=== PATIENT | female | born 1935 | race Caucasian/White ===

== ENCOUNTER 2019-07-03 15:00 | Outpatient (CLI) | payer MEDICARE ==
[2019-07-03 18:46] LABS: BASOPHILS # (AUTO) 0.1 10^3/uL (0.0-0.1); BASOPHILS % (AUTO) 0.9 %; EOSINOPHILS # (AUTO) 0.2 10^3/uL (0.0-0.7); HGB - HEMOGLOBIN 10.1 g/dL (12.0-16.0); LYMPHOCYTES # (AUTO) 2.9 10^3/uL (1.5-3.5); LYMPHOCYTES % (AUTO) 39.1 %; MEAN CORPUSCULAR HEMOGLOBIN 32.7 pg (27.0-31.0); MEAN CORPUSCULAR HGB CONC 30.9 g/dL (32.0-36.0); MEAN CORPUSCULAR VOLUME 105.8 fL (81.0-99.0); MEAN PLATELET VOLUME 9.5 fL (7.9-10.8); MONOCYTES # (AUTO) 0.7 10^3/uL (0.0-1.0); MONOCYTES % (AUTO) 8.8 %; NEUTROPHILS # (AUTO) 3.7 10^3/uL (1.5-6.6); NEUTROPHILS % (AUTO) 48.7 %; PLT - PLATELET COUNT 377 10^3/uL (130-450); RED BLOOD COUNT 3.09 10^6/uL (4.20-5.40); RED CELL DISTRIBUTION WIDTH 13.6 % (12.0-15.0); WHITE BLOOD COUNT 7.5 x10^3/uL (4.8-10.8)
[2019-07-03 18:57] LABS: BILIRUBIN,TOTAL 0.6 mg/dL (0.2-1.0); CALCIUM 9.4 mg/dL (8.5-10.3); CREATININE 1.1 mg/dL (0.4-1.0)
== END 2019-07-03 23:59 | disposition home or self-care (01) ==
LOC: LAB.WCP 15:00
PROVIDERS: ATTEND Physician Assistant
DX: G91.2 (Idiopathic) normal pressure hydrocephalus (principal)
CPT/HCPCS: 36415; 80053; 85025

== ENCOUNTER 2019-07-23 12:26 | Outpatient (CLI) | payer MEDICARE ==
[2019-07-23] MEDS ORDERED: REGADENOSON 0.4 MG/5 ML SYRINGE IVP ONE (14:42)
[2019-07-23] MEDS ORDERED: AMINOPHYLLINE 250 MG/10 ML VIAL ONE (14:42)
[2019-07-23] MEDS: REGADENOSON 0.4 MG/5 ML SYRINGE IVP ONE (14:50)
--- NOTE | 2019-07-23 15:20 | CARDIAC PROCEDURE NOTE ---
DATE OF SERVICE: 07/23/2019 Physician: Karen King MD, [facility] INDICATION: Chest pain. CARDIAC RISK FACTORS: Advanced age. DESCRIPTION OF PROCEDURE: After signing informed consent, the patient underwent a Lexiscan pharmaceutical stress test with nuclear myocardial perfusion imaging. RESTING HEART RATE: 71. PEAK HEART RATE: 89. RESTING BLOOD PRESSURE: 131/74. PEAK BLOOD PRESSURE: 138/71. Lexiscan was infused per protocol. Patient developed a headache, she had no chest pain or shortness of breath. The patient was given Aminophylline 25 mg IV, for reversal of her headache. EKG AT REST: Normal sinus rhythm, rare PVC, otherwise within normal limits. EKG AT PEAK: No new ST segment or T-wave abnormalities. SUMMARY 1. Normal resting EKG except for PVC. 2. No ischemic changes by EKG criteria during this pharmaceutical stress test. 3. Nuclear images reported separately. cc: Victoria Herring PA-C TD: 07/23/2019 15:12 MTDD
--- NOTE | 2019-07-24 09:22 | CT Report ---
Reason: VENTRICULOPERITONEAL SHUNT,NORM PRES HYDROCEPHALUS Procedure Date: 07/23/2019 Accession Number: [id number] / [id number] Procedure: CT - HEAD WO CPT Code: Final Report FULL RESULT: EXAM: CT HEAD EXAM DATE: 07/23/2019 12:55 PM. CLINICAL HISTORY: Ventriculoperitoneal shunt, normal pressure hydrocephalus. COMPARISON: None. TECHNIQUE: Multiaxial CT images were obtained from the foramen magnum to the vertex. Reformats: Sagittal and coronal. IV contrast: None. In accordance with CT protocol optimization, one or more of the following dose reduction techniques were utilized for this exam: automated exposure control, adjustment of mA and/or KV based on patient size, or use of iterative reconstructive technique. FINDINGS: Parenchyma: No intraparenchymal hemorrhage. No evidence of mass, midline shift. Ngo-white differentiation is distinct. Extra-axial Spaces: Normal for age. No subdural or epidural collections identified. Ventricles: A right posterior approach ventriculoperitoneal shunt catheter is visualized with its tip near the anterior portion of the septum. The lateral ventricles are symmetrically enlarged with prominence of the third and fourth ventricles as well. Sinuses and Orbits: Imaged paranasal sinuses, orbits, and mastoids show no significant abnormality. Bones: No evidence of fracture or calvarial defect. Other: None. IMPRESSION: Symmetric ventriculomegaly with expected positioning of ventriculoperitoneal shunt catheter. RADIA
--- NOTE | 2019-07-24 11:20 | Nuclear Medicine Report ---
Reason: CHEST PAIN Procedure Date: 07/23/2019 Accession Number: [id number] / [id number] Procedure: NM - Myocardial Perfusion STR/RST CPT Code: Final Report FULL RESULT: EXAM: SINGLE-ISOTOPE PHARMACOLOGICAL STRESS TEST WITH REGADENOSON. SINGLE-ISOTOPE AND ONE-DAY REST/STRESS MYOCARDIAL PERFUSION SCANS WITH TOMOGRAPHIC IMAGING, QUANTITATIVE ANALYSIS, WALL MOTION ANALYSIS AND CALCULATION OF EJECTION FRACTION. EXAM DATE: 07/23/2019 01:57 PM. CLINICAL HISTORY: CHEST PAIN. COMPARISON: None. TECHNIQUE: After the intravenous administration of 10.8 mCi of Tc-99m sestamibi, a rest myocardial perfusion scan was done with tomography. Motion correction was applied when appropriate. After an appropriate delay, pharmacological stress was performed with the infusion of 0.4 mg regadenoson per protocol. According to protocol, 44.3 mCi of Tc-99m sestamibi was injected for stress myocardial perfusion scan. Motion correction was applied when appropriate. Gated tomographic images were obtained for wall motion analysis and computation of left ventricular ejection fraction. FINDINGS: Perfusion images: Left ventricular chamber size appears normal at rest and unchanged at stress. No convincing fixed perfusion deficits. Small size region of mildly reduced uptake at the apical third anteroseptal/anterior wall appears improved on rest images. SSS 4, SRS 1, SDS 3. Gated images: No convincing focal wall motion abnormality. Calculated left ventricular EDV 61 mL, ESV 16 mL. The left ventricular ejection fraction is estimated at 74% (normal > 50%). IMPRESSION: 1. Small size, mild severity reversible apical third anteroseptal/anterior, suggesting mild stress-induced ischemia. 2. No convincing fixed perfusion deficits. 3. Left ventricular ejection fraction of 74% (normal > 50%). Please correlate findings with stress ECG tracings and procedure notes. RADIA
== END 2019-07-23 12:27 | disposition home or self-care (01) ==
LOC: DI 12:26
PROVIDERS: ATTEND Physician Assistant
DX: R07.9 Chest pain, unspecified (principal); G91.2 (Idiopathic) normal pressure hydrocephalus; Z98.2 Presence of cerebrospinal fluid drainage device; G93.89 Other specified disorders of brain
CPT/HCPCS: 70450; 78452; 93017; A9500; J2785

== ENCOUNTER 2020-05-14 10:03 | Outpatient (CLI) | payer BC, MEDICARE ==
--- NOTE | 2020-05-14 11:29 | XRAY Report ---
PROCEDURE: Shoulder 3 View LT INDICATIONS: SHOULDER JOINT PAIN,LEFT TECHNIQUE: 3 views of the shoulder were acquired. COMPARISON: None. FINDINGS: Bones: No fractures or dislocations. No suspicious bony lesions. Visualized ribs appear intact. M oderate to severe acromioclavicular degenerative narrowing. In addition, the humeral head is high rid ing. Soft tissues: No suspicious soft tissue calcifications. IMPRESSION: 1. Moderate to severe acromioclavicular degenerative narrowing. 2. High riding humeral head which can be seen with rotator cuff pathology. Reviewed by: Ema Resendiz MD on 05/14/2020 11:28 AM PDT Approved by: Ema Resendiz MD on 05/14/2020 11:28 AM PDT Station ID: [id number]
== END 2020-05-14 10:04 | disposition home or self-care (01) ==
LOC: DI 10:03
PROVIDERS: ATTEND Family Medicine
DX: M19.012 Primary osteoarthritis, left shoulder (principal); R93.6 Abnormal findings on diagnostic imaging of limbs

== ENCOUNTER 2020-06-07 11:14 | Outpatient (CLI) | payer MEDICARE, MEDICAID | END 2020-06-07 11:15 | disposition critical access hospital (66) | LOC: EMS 11:14 | PROVIDERS: ATTEND Surgery | DX: R53.81 Other malaise (principal); R11.0 Nausea | CPT/HCPCS: A0425; A0427 ==

== ENCOUNTER 2020-06-07 11:31 | Emergency (ER) | payer MEDICARE, MEDICAID ==
[2020-06-07] MEDS ORDERED: ONDANSETRON 4 MG/2 ML VIAL IVP STA (11:57)
--- NOTE | 2020-06-07 12:16 | ED Physician Documentation ---
History of Present Illness - Stated complaint Stated Complaint: AMS - Chief complaint Chief Complaint: General - History obtained from History obtained from: Patient, Family, EMS - Additonal information Additional information: Patient is brought to the emergency department by EMS after being found to have an episode of altered mental status this morning while eating breakfast. Daughter states that the patient had several teeth extracted 3 days ago and was placed on amoxicillin and oxycodone after that. She has been wearing new dentures for the last few days and has been complaining that her mouth hurts. Daughter states there has not been any swelling or drainage from the patient's mouth. They have been giving the Percocet every 6 hours as directed, and the patient has been on her scheduled amoxicillin as directed, as well. The patient has not complained of any worse pain than usual anywhere else. Daughter states the episode this morning was relayed to her by her sister who lives with the patient. The patient apparently suddenly developed a blank stare and was unarousable. This lasted for less than 1 minute, and then the patient began to come around. Medics state the patient has been alert and oriented for them, and daughter states that patient now is back at baseline. No focal neurologic deficits were noted at that time. The patient denies any chest or abdominal pain. No shortness of breath. The patient only symptom has been nausea and vomiting since the ambulance ride. She does note that she keeps having the urge to urinate, but never seems to have any urine come out when she tries to go. She does have a history of a SALES SERVICE SUPERVISOR shunt which was most recently evaluated about 6 months ago, and they were told by the neurosurgeon that the shunt looks good. No other complaints at this time. Review of Systems Ten Systems: 10 systems reviewed and negative Constitutional: reports: Reviewed and negative Eyes: reports: Reviewed and negative Ears: reports: Reviewed and negative Nose: reports: Reviewed and negative Throat: reports: Reviewed and negative Cardiac: reports: Reviewed and negative Respiratory: reports: Reviewed and negative GI: reports: Nausea, Vomiting : reports: Reviewed and negative Skin: reports: Reviewed and negative Musculoskeletal: reports: Reviewed and negative Neurologic: reports: Altered mental status, Unresponsive Psychiatric: reports: Reviewed and negative Endocrine: reports: Reviewed and negative Immunocompromised: reports: Reviewed and negative PD PAST MEDICAL HISTORY - Present Medications Home Medications: Ambulatory Orders Medication Instructions Recorded Confirmed Ondansetron Odt [Zofran] 4 mg TL Q6H PRN #10 tablet 06/07/20 - Allergies Allergies/Adverse Reactions: Allergies Allergy/AdvReac Type Severity Reaction Status Date / Time No Known Drug Allergies Allergy Verified 06/07/20 11:39 PD ED PE NORMAL - Vitals Vital signs reviewed: Yes - General General: No acute distress, Well developed/nourished, Other (Patient is alert and answers questions appropriately.) - HEENT HEENT: Atraumatic, PERRL, EOMI, Moist mucous membranes - Neck Neck: Supple, no meningeal sign - Cardiac Cardiac: RRR, No murmur - Respiratory Respiratory: No respiratory distress, Clear bilaterally - Abdomen Abdomen: Soft, Non tender, Non distended - Derm Derm: Normal color, Warm and dry, No rash - Extremities Extremities: No deformity - Neuro Neuro: Alert and oriented X 3 - Psych Psych: Normal mood, Normal affect Results - Vitals Vitals: Vital Signs - 24 hr 06/07/20 06/07/20 06/07/20 11:35 13:08 14:40 Temperature 36.1 C L 36.2 C L Heart Rate 58 L 79 95 Respiratory 20 15 18 Rate Blood Pressure 136/64 H 140/61 H 147/77 H O2 Saturation 96 97 100 Oxygen O2 Source Room air - Labs Labs: Laboratory Tests 06/07/20 06/07/20 06/07/20 11:50 11:50 11:50 WBC 14.9 H RBC 3.03 L Hgb 10.0 L Hct 31.3 L MCV 103.3 H MCH 33.0 H MCHC 31.9 L RDW 14.1 Plt Count 426 MPV 8.9 Neut # (Auto) 8.9 H Lymph # (Auto) 4.4 H Rose[place] # (Auto) 1.2 H Eos # (Auto) 0.3 Baso # (Auto) 0.1 Absolute Nucleated RBC 0.00 Nucleated RBC % 0.0 Sodium 136 Potassium 4.1 Chloride 99 L Carbon Dioxide 23 Anion Gap 14.0 H BUN 21 H Creatinine 1.3 H Estimated GFR (MDRD) 39 L Glucose 127 H Lactic Acid 1.3 Calcium 9.6 Total Bilirubin 0.7 AST 23 ALT 15 Alkaline Phosphatase 47 Total Protein 7.9 Albumin 4.0 Globulin 3.9 Albumin/Globulin Ratio 1.0 Lipase 27 Urine Color Urine Clarity Urine pH Ur Specific [place] Urine Protein Urine Glucose (UA) Urine Ketones Urine Occult Blood Urine Nitrite Urine Bilirubin Urine Urobilinogen Ur Leukocyte Esterase Urine RBC Urine WBC Ur Squamous Epith Cells Urine Bacteria Urine Casts Ur Microscopic Review Urine Culture Comments 06/07/20 13:28 WBC RBC Hgb Hct MCV MCH MCHC RDW Plt Count MPV Neut # (Auto) Lymph # (Auto) [place] # (Auto) Eos # (Auto) Baso # (Auto) Absolute Nucleated RBC Nucleated RBC % Sodium Potassium Chloride Carbon Dioxide Anion Gap BUN Creatinine Estimated GFR (MDRD) Glucose Lactic Acid Calcium Total Bilirubin AST ALT Alkaline Phosphatase Total Protein Albumin Globulin Albumin/Globulin Ratio Lipase Urine Color YELLOW Urine Clarity HAZY Urine pH 5.5 Ur Specific [place] 1.020 Urine Protein NEGATIVE Urine Glucose (UA) NEGATIVE Urine Ketones NEGATIVE Urine Occult Blood NEGATIVE Urine Nitrite NEGATIVE Urine Bilirubin NEGATIVE Urine Urobilinogen 0.2 (NORMAL) Ur Leukocyte Esterase NEGATIVE Urine RBC 0-5 Urine WBC 4-5 Ur Squamous Epith Cells MANY Squamous H Urine Bacteria Moderate H Urine Casts 6-10 Cellular Casts Ur Microscopic Review INDICATED Urine Culture Comments NOT INDICATED - Rads (name of study) CT head Radiology: Final report received, EMP read indepedently, See rad report (No acute intracranial findings; chronic microvascular ischemic change; SALES SERVICE SUPERVISOR shunt redemonstrated.) PD MEDICAL DECISION MAKING - ED course Complexity details: reviewed results, re-evaluated patient, considered differential, d/w patient, d/w family ED course: The patient was well-appearing in the emergency department, other than the nausea and vomiting, and seem to have returned to her mental baseline. She was worked up with labs, urinalysis, and head CT.The patient's entire work-up was negative. After receiving IV fluids and a total of 8 mg of Zofran between EMS and's, the patient was found to be resting comfortably in bed with no further complaints. I discussed with the patient's daughter that is most likely the buildup of oxycodone that has caused the patient's symptoms, though she may have a viral illness, as well. We discussed home management and symptoms, as well as the usual indications for return. Departure - Departure Disposition: 01 Home, Self Care Clinical Impression: Altered mental status Qualifiers: Altered mental status type: transient alteration of awareness Qualified Code(s): R40.4 - Transient alteration of awareness Vomiting Qualifiers: Vomiting type: bilious vomiting Nausea presence: with nausea Qualified Code(s): R11.14 - Bilious vomiting Condition: Stable Instructions: ED Altered Loc, ED Nausea Vomiting Prescriptions: Ondansetron Odt [Zofran] 4 mg TL Q6H PRN #10 tablet PRN Reason: Nausea / Vomiting Comments: The labs, CT scan, and urinalysis all look good. As we discussed, some of the symptoms may be due to buildup of the effects of the oxycodone in your system. You can try taking smaller doses, say 1/2 pill every 3-4 hours and see if this improves the symptoms. Please follow-up with your primary care physician within the week if you are not feeling better. You may take the nausea medication as needed. Discharge Date/Time: 06/07/20 14:49
[2020-06-07 12:19] LABS: BILIRUBIN,TOTAL 0.7 mg/dL (0.2-1.0); CALCIUM 9.6 mg/dL (8.5-10.3); CREATININE 1.3 mg/dL (0.4-1.0); TOTAL PROTEIN 7.9 g/dL (6.7-8.2)
[2020-06-07 12:20] LABS: BASOPHILS # (AUTO) 0.1 10^3/uL (0.0-0.1); BASOPHILS % (AUTO) 0.5 %; EOSINOPHILS # (AUTO) 0.3 10^3/uL (0.0-0.7); EOSINOPHILS % (AUTO) 2.3 %; LYMPHOCYTES # (AUTO) 4.4 10^3/uL (1.5-3.5); LYMPHOCYTES % (AUTO) 29.3 %; MEAN CORPUSCULAR HGB CONC 31.9 g/dL (32.0-36.0); MEAN CORPUSCULAR VOLUME 103.3 fL (81.0-99.0); MEAN PLATELET VOLUME 8.9 fL (7.9-10.8); MONOCYTES # (AUTO) 1.2 10^3/uL (0.0-1.0); MONOCYTES % (AUTO) 7.8 %; NEUTROPHILS # (AUTO) 8.9 10^3/uL (1.5-6.6); NEUTROPHILS % (AUTO) 59.4 %; PLT - PLATELET COUNT 426 10^3/uL (130-450); RED BLOOD COUNT 3.03 10^6/uL (4.20-5.40); RED CELL DISTRIBUTION WIDTH 14.1 % (12.0-15.0); WHITE BLOOD COUNT 14.9 x10^3/uL (4.8-10.8)
--- NOTE | 2020-06-07 12:46 | CT Report ---
PROCEDURE: HEAD WO INDICATIONS: altered mental status TECHNIQUE: Noncontrast 4.5 mm thick angled axial sections acquired from the foramen magnum to the vertex. For r adiation dose reduction, the following was used: automated exposure control, adjustment of mA and/or kV according to patient size. COMPARISON: Noncontrast CT of the brain dated 07/23/2019. FINDINGS: Image quality: Excellent. CSF spaces: Basal cisterns are patent. No extra-axial fluid collections. As before, there is marked volume loss. A ventriculoperitoneal shunt is present with the tip at the anterior horn of the left l ateral ventricle. Ventricular size is unchanged from the prior study. Brain: No midline shift. No intracranial masses or hemorrhage. There are extensive deep and periven tricular white matter changes as before consistent with microvascular ischemic change. Skull and face: Calvarium and visualized facial bones are intact, without suspicious lesions. Sinuses: Visualized sinuses and mastoids are clear. IMPRESSION: 1. No acute intracranial findings. 2. Extensive findings likely associated with chronic microvascular ischemic change. 3. Ventriculoperitoneal shunt redemonstrated. Reviewed by: Shyann Pop MD on 06/07/2020 12:45 PM PDT Approved by: Shyann Pop MD on 06/07/2020 12:45 PM PDT Station ID: [id number]
[2020-06-07 13:40] LABS: BILIRUBIN,URINE NEGATIVE (NEGATIVE); GLUCOSE, URINE (UA) NEGATIVE (NEGATIVE); KETONES,URINE (UA) NEGATIVE (NEGATIVE); LEUKOCYTE ESTERASE, URINE NEGATIVE (NEGATIVE); NITRITE,URINE NEGATIVE (NEGATIVE); OCCULT BLOOD,URINE NEGATIVE (NEGATIVE); PH,URINE 5.5 PH (5.0-7.5); PROTEIN,URINE NEGATIVE (NEGATIVE); UROBILINOGEN,URINE 0.2 (NORMAL) E.U./dL (NORMAL)
[2020-06-07 14:00] LABS: CLARITY,URINE HAZY (CLEAR)
[2020-06-07 14:01] LABS: BACTERIA,URINE Moderate /HPF (None Seen); RBC,URINE 0-5 /HPF (0-5); SQUAMOUS EPITHELIAL CELL,UR MANY Squamous (<= Few)
[2020-06-07 14:40] VITALS: BP 147/77
== END 2020-06-07 14:49 | disposition home or self-care (01) ==
LOC: EDUNIT# → ED 11:31
DX: R40.4 Transient alteration of awareness (principal); R11.14 Bilious vomiting
CPT/HCPCS: 36415; 70450; 80053; 81001; 81003; 83605; 83690; 85025; 87086; 96374; 99284

== ENCOUNTER 2020-06-11 09:43 | Outpatient (CLI) | payer MEDICARE, MEDICAID ==
--- NOTE | 2020-06-11 13:12 | XRAY Report ---
PROCEDURE: Shoulder 2 View RT INDICATIONS: SHOULDER JOINT PAIN,RIGHT TECHNIQUE: 2 views of the shoulder were acquired. COMPARISON: None. FINDINGS: Bones: No acute fractures or dislocations. Severe degenerative changes of the right acromioclavicul ar and glenohumeral joints. High riding humeral head with near complete loss of the subacromial space . There is moderate undersurface irregularity of the distal acromion. Chronic calcification noted sup erior to the right AC joint. No suspicious bony lesions. Visualized ribs appear intact. Soft tissues: No suspicious soft tissue calcifications. IMPRESSION: 1. 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 2. Findings consistent with chronic rotator cuff tear. Reviewed by: Mendez Baer MD on 06/11/2020 1:10 PM PDT Approved by: Mendez Baer MD on 06/11/2020 1:10 PM PDT Station ID: [id number]
== END 2020-06-11 09:44 | disposition home or self-care (01) ==
LOC: DI 09:43
PROVIDERS: ATTEND Family Medicine
DX: M19.011 Primary osteoarthritis, right shoulder (principal)

== ENCOUNTER 2020-09-01 13:24 | Outpatient (CLI) | payer MEDICARE, MEDICAID | END 2020-09-01 13:25 | disposition home or self-care (01) | LOC: COV 13:24 | PROVIDERS: ATTEND Family Medicine | DX: Z20.822 Contact with and (suspected) exposure to COVID-19 (principal) ==

== ENCOUNTER 2020-09-20 13:28 | Outpatient (CLI) | payer MEDICARE, MEDICAID ==
[2020-09-20 16:48] LABS: BASOPHILS % (AUTO) 0.6 %; EOSINOPHILS # (AUTO) 0.1 10^3/uL (0.0-0.7); EOSINOPHILS % (AUTO) 1.2 %; HGB - HEMOGLOBIN 9.6 g/dL (12.0-16.0); LYMPHOCYTES # (AUTO) 2.2 10^3/uL (1.5-3.5); LYMPHOCYTES % (AUTO) 33.9 %; MEAN CORPUSCULAR HEMOGLOBIN 32.7 pg (27.0-31.0); MEAN CORPUSCULAR HGB CONC 31.3 g/dL (32.0-36.0); MEAN CORPUSCULAR VOLUME 104.4 fL (81.0-99.0); MEAN PLATELET VOLUME 9.4 fL (7.9-10.8); MONOCYTES # (AUTO) 0.6 10^3/uL (0.0-1.0); MONOCYTES % (AUTO) 9.4 %; NEUTROPHILS # (AUTO) 3.6 10^3/uL (1.5-6.6); NEUTROPHILS % (AUTO) 54.3 %; PLT - PLATELET COUNT 508 10^3/uL (130-450); RED BLOOD COUNT 2.94 10^6/uL (4.20-5.40); RED CELL DISTRIBUTION WIDTH 13.9 % (12.0-15.0); WHITE BLOOD COUNT 6.6 x10^3/uL (4.8-10.8)
[2020-09-20 16:59] LABS: ALBUMIN 3.8 g/dL (3.2-5.5); BILIRUBIN,TOTAL 0.4 mg/dL (0.2-1.0); CREATININE 1.1 mg/dL (0.4-1.0); TOTAL PROTEIN 7.6 g/dL (6.7-8.2)
== END 2020-09-20 23:59 | disposition home or self-care (01) ==
LOC: LAB.N 13:28
PROVIDERS: ATTEND Family Medicine
DX: F03.90 Unspecified dementia, unspecified severity, without behavioral disturbance, psychotic disturbance, mood disturbance, and anxiety (principal); R30.0 Dysuria; G91.2 (Idiopathic) normal pressure hydrocephalus
CPT/HCPCS: 36415; 80053; 85025; 87086

== ENCOUNTER 2020-10-11 07:09 | Outpatient (CLI) | payer MEDICARE, MEDICAID | END 2020-10-11 07:10 | disposition EMS.NT | LOC: EMS 07:09 | DX: Z03.89 Encounter for observation for other suspected diseases and conditions ruled out (principal) ==

== ENCOUNTER 2020-10-12 11:48 | Inpatient (IN) | payer MEDICARE, MEDICAID ==
--- NOTE | 2020-10-12 12:26 | ED Physician Documentation ---
PD HPI ALTERED MENTAL STATUS - Stated complaint Stated Complaint: GLF/FEVER - Chief complaint Chief Complaint: Neuro - History obtained from History obtained from: Patient, Family (daughter) - Additional information Additional information: This is an 85-year-old woman with history of normal pressure hydrocephalus, she has a TELEPHONE CLEANER shunt in place, originally from [address] Cho at [address] [place] [address] neurosurgery in [place]. Recently placed into assisted living. She is on no prescription medicines. Reportedly had a positive UA that was untreated given lack of symptoms recently. Now over the last few days she is fallen twice. Both unwitnessed and without clear injury. She had a fever to 101 this morning. Her only complaint is dry mouth and head pressure. Review of Systems Unable to obtain: Dementia PD PAST MEDICAL HISTORY - Present Medications Home Medications: Ambulatory Orders Medication Instructions Recorded Confirmed No Known Home Medications 10/12/20 10/12/20 - Allergies Allergies/Adverse Reactions: Allergies Allergy/AdvReac Type Severity Reaction Status Date / Time No Known Drug Allergies Allergy Verified 10/12/20 11:55 - Social History Does the pt smoke?: No Smoking Status: Never smoker PD ED PE NORMAL - Vitals Vital signs reviewed: Yes - General General: No acute distress, Well developed/nourished, Other (Although she is technically alert and oriented x3 it takes her quite some time to figure out the date with prompting, and she is a poor historian for short-term events.) - HEENT HEENT: PERRL, EOMI - Neck Neck: Supple, no meningeal sign, No bony TTP - Cardiac Cardiac: Other (Borderline tachycardia without murmur, regular) - Respiratory Respiratory: No respiratory distress, Clear bilaterally - Abdomen Abdomen: Normal bowel sounds, Soft, Non tender - Back Back: No CVA TTP, No spinal TTP - Derm Derm: No rash - Extremities Extremities: No edema, No calf tenderness / cord - Neuro Neuro: Alert and oriented X 3, No motor deficit, No sensory deficit, Normal speech Results - Vitals Vitals: Vital Signs - 24 hr 10/12/20 10/12/20 10/12/20 11:51 12:29 13:00 Temperature 37 C 38.2 C H Heart Rate 105 H 95 96 Respiratory 18 19 24 Rate Blood Pressure 134/52 H 127/68 122/60 O2 Saturation 95 100 97 10/12/20 10/12/20 10/12/20 13:37 14:00 14:30 Temperature 37.6 C Heart Rate 89 88 82 Respiratory 23 24 26 H Rate Blood Pressure 129/91 H 123/54 L 127/61 O2 Saturation 96 98 98 10/12/20 15:00 Temperature Heart Rate 87 Respiratory 25 H Rate Blood Pressure 136/60 H O2 Saturation 95 Oxygen O2 Source Room air - Labs Labs: Laboratory Tests 10/12/20 10/12/20 10/12/20 12:08 12:36 12:36 WBC 18.1 H RBC 3.16 L Hgb 10.2 L Hct 31.9 L MCV 100.9 H MCH 32.3 H MCHC 32.0 RDW 14.6 Plt Count 398 MPV 9.3 Neut # (Auto) 16.5 H Lymph # (Auto) 0.6 L Schleicher # (Auto) 0.6 Eos # (Auto) 0.1 Baso # (Auto) 0.1 Absolute Nucleated RBC 0.00 Nucleated RBC % 0.0 Sodium Potassium Chloride Carbon Dioxide Anion Gap BUN Creatinine Estimated GFR (MDRD) Glucose Lactic Acid 1.2 Calcium Total Bilirubin AST ALT Alkaline Phosphatase Total Protein Albumin Globulin Albumin/Globulin Ratio Urine Color YELLOW Urine Clarity CLEAR Urine pH 6.0 Ur Specific [place] 1.015 Urine Protein NEGATIVE Urine Glucose (UA) NEGATIVE Urine Ketones NEGATIVE Urine Occult Blood NEGATIVE Urine Nitrite NEGATIVE Urine Bilirubin NEGATIVE Urine Urobilinogen 0.2 (NORMAL) Ur Leukocyte Esterase SMALL H Urine RBC 0-5 Urine WBC 11-25 H Ur Squamous Epith Cells FEW Squamous Urine Bacteria Few Urine Casts 0-2 Hyaline Casts Urine Mucus Few Strands Urine Culture Comments INDICATED Nasal Adenovirus (PCR) Nasal B. parapertussis DNA (PCR) Nasal Coronavir 229E PCR Nasal Coronavir HKU1 PCR Nasal Coronavir NL63 PCR Nasal Coronavir OC43 PCR Nasal Enterovir/Rhinovir PCR Nasal Influenza B PCR Nasal Influenza A PCR Nasal Parainfluen 1 PCR Nasal Parainfluen 2 PCR Nasal Parainfluen 3 PCR Nasal Parainfluen 4 PCR Nasal RSV (PCR) Nasal B.pertussis DNA PCR Nasal C.pneumoniae (PCR) Mohinder Human Metapneumo PCR Nasal M.pneumoniae (PCR) Nasal SARS-CoV-2 (PCR) 10/12/20 10/12/20 12:36 12:40 WBC RBC Hgb Hct MCV MCH MCHC RDW Plt Count MPV Neut # (Auto) Lymph # (Auto) [place]le[place] # (Auto) Eos # (Auto) Baso # (Auto) Absolute Nucleated RBC Nucleated RBC % Sodium 138 Potassium 4.0 Chloride 98 L Carbon Dioxide 23 Anion Gap 17.0 H BUN 24 H Creatinine 1.3 H Estimated GFR (MDRD) 39 L Glucose 121 H Lactic Acid Calcium 9.9 Total Bilirubin 0.8 AST 35 ALT 22 Alkaline Phosphatase 50 Total Protein 8.1 Albumin 3.8 Globulin 4.3 H Albumin/Globulin Ratio 0.9 L Urine Color Urine Clarity Urine pH Ur Specific [place] Urine Protein Urine Glucose (UA) Urine Ketones Urine Occult Blood Urine Nitrite Urine Bilirubin Urine Urobilinogen Ur Leukocyte Esterase Urine RBC Urine WBC Ur Squamous Epith Cells Urine Bacteria Urine Casts Urine Mucus Urine Culture Comments Nasal Adenovirus (PCR) NOT DETECTED Nasal B. parapertussis DNA (PCR) NOT DETECTED Nasal Coronavir 229E PCR NOT DETECTED Nasal Coronavir HKU1 PCR NOT DETECTED Nasal Coronavir NL63 PCR NOT DETECTED Nasal Coronavir OC43 PCR NOT DETECTED Nasal Enterovir/Rhinovir PCR NOT DETECTED Nasal Influenza B PCR NOT DETECTED Nasal Influenza A PCR NOT DETECTED Nasal Parainfluen 1 PCR NOT DETECTED Nasal Parainfluen 2 PCR NOT DETECTED Nasal Parainfluen 3 PCR NOT DETECTED Nasal Parainfluen 4 PCR NOT DETECTED Nasal RSV (PCR) NOT DETECTED Nasal B.pertussis DNA PCR NOT DETECTED Nasal C.pneumoniae (PCR) NOT DETECTED Mohinder Human Metapneumo PCR NOT DETECTED Nasal M.pneumoniae (PCR) NOT DETECTED Nasal SARS-CoV-2 (PCR) NOT DETECTED PD MEDICAL DECISION MAKING - ED course ED course: 85-year-old woman with history of normal pressure hydrocephalus and dementia presents with increased confusion and falls over the last 2 days with fever today. She has some lower abdominal tenderness. No clinical findings of shunt malfunction. CT of the head shows no interval change or increase in ventriculomegaly. Shunt series was limited because we were going to scan her head and belly anyway. No obvious shunt malfunction noting the radiologist's comments about how the whole thing should be done with one modality. CT of the belly with incidental findings. She has no right upper quadrant tenderness to correlate with potential liver abscess. Suspect this is a chronic finding. She does have UTI with elevated white count and fever here, she does fit sepsis criteria and was administered Rocephin, 2 g after blood cultures. She was discussed with Dr. King at 3:10 PM for admission. - Sepsis Event Current Stage of Sepsis: Sepsis Possible source of Sepsis: GI tract/intra-abdominal, Genitourinary Mental/Cognitive Status: Alert/Oriented X3 Reason for not giving 30ml/kg crystalloid fluids: Other (not in shock) Capillary refill: Less than 2 seconds Peripheral Pulse Strength: 3+ Normal Peripheral Pulse Location: Radial Sepsis Comment: Sepsis time of onset 1:07 PM on October 12, she is now febrile in the emergency department although she was not initially febrile. She is modestly tachycardic, right around 100. Potential source at this time is urine, we are waiting on chest x-ray and CT of the belly to rule out other sources. Departure - Departure Disposition: [address] [facility] DC/Arturo
[2020-10-12 12:35] LABS: BILIRUBIN,URINE NEGATIVE (NEGATIVE); GLUCOSE, URINE (UA) NEGATIVE (NEGATIVE); KETONES,URINE (UA) NEGATIVE (NEGATIVE); LEUKOCYTE ESTERASE, URINE SMALL (NEGATIVE); NITRITE,URINE NEGATIVE (NEGATIVE); OCCULT BLOOD,URINE NEGATIVE (NEGATIVE); PROTEIN,URINE NEGATIVE (NEGATIVE); UROBILINOGEN,URINE 0.2 (NORMAL) E.U./dL (NORMAL)
[2020-10-12 12:41] LABS: CLARITY,URINE CLEAR (CLEAR)
[2020-10-12 12:49] LABS: BASOPHILS # (AUTO) 0.1 10^3/uL (0.0-0.1); BASOPHILS % (AUTO) 0.3 %; EOSINOPHILS # (AUTO) 0.1 10^3/uL (0.0-0.7); EOSINOPHILS % (AUTO) 0.6 %; HCT - HEMATOCRIT 31.9 % (37.0-47.0); HGB - HEMOGLOBIN 10.2 g/dL (12.0-16.0); LYMPHOCYTES # (AUTO) 0.6 10^3/uL (1.5-3.5); LYMPHOCYTES % (AUTO) 3.4 %; MEAN CORPUSCULAR HEMOGLOBIN 32.3 pg (27.0-31.0); MEAN CORPUSCULAR VOLUME 100.9 fL (81.0-99.0); MEAN PLATELET VOLUME 9.3 fL (7.9-10.8); MONOCYTES # (AUTO) 0.6 10^3/uL (0.0-1.0); MONOCYTES % (AUTO) 3.1 %; NEUTROPHILS # (AUTO) 16.5 10^3/uL (1.5-6.6); NEUTROPHILS % (AUTO) 91.3 %; PLT - PLATELET COUNT 398 10^3/uL (130-450); RED BLOOD COUNT 3.16 10^6/uL (4.20-5.40); RED CELL DISTRIBUTION WIDTH 14.6 % (12.0-15.0); WHITE BLOOD COUNT 18.1 x10^3/uL (4.8-10.8)
[2020-10-12 12:59] LABS: ALBUMIN 3.8 g/dL (3.2-5.5); ALBUMIN/GLOBULIN RATIO 0.9 (1.0-2.2); BILIRUBIN,TOTAL 0.8 mg/dL (0.2-1.0); CALCIUM 9.9 mg/dL (8.5-10.3); CREATININE 1.3 mg/dL (0.4-1.0); TOTAL PROTEIN 8.1 g/dL (6.7-8.2)
[2020-10-12] MEDS ORDERED: IOVERSOL 320 100 ML VIAL IVP ONE ×2 (12:59→14:10)
[2020-10-12 13:03] LABS: BACTERIA,URINE Few /HPF (None Seen); CASTS, URINE 0-2 Hyaline Casts /LPF; MUCUS,URINE Few Strands; RBC,URINE 0-5 /HPF (0-5); SQUAMOUS EPITHELIAL CELL,UR FEW Squamous (<= Few)
[2020-10-12] MEDS ORDERED: cefTRIAXone 2 GM in SODIUM CHLORIDE 0.9% MINIBAG 100 ML IV STA (13:06)
[2020-10-12] MEDS ORDERED: SODIUM CHLORIDE 0.9% 1,000 ML IV STA (13:08)
[2020-10-12 13:36] LABS: B. PARAPERTUSSIS- RESP PCR PAN NOT DETECTED; B. PERTUSSIS- RESP PCR PANEL NOT DETECTED; C. PNEUMONIAE- RESP PCR PANEL NOT DETECTED; CORONAVIRUS 229E-RESP PCR NOT DETECTED; CORONAVIRUS HKU1-RESP PCR NOT DETECTED; CORONAVIRUS NL63-RESP PCR NOT DETECTED; CORONAVIRUS OC43-RESP PCR NOT DETECTED; HUMAN METAPNEUMOVIRUS NOT DETECTED; INFLUENZA A- RESP PCR PANEL NOT DETECTED; INFLUENZA B - RESP PCR PANEL NOT DETECTED; M. PNEUMONIAE- RESP PCR PANEL NOT DETECTED; PARAINFLUENZA VIRUS 1 NOT DETECTED; PARAINFLUENZA VIRUS 2 NOT DETECTED; PARAINFLUENZA VIRUS 3 NOT DETECTED; PARAINFLUENZA VIRUS 4 NOT DETECTED; RHINOVIRUS/ENTEROVIRUS NOT DETECTED; RSV- RESP PCR PANEL NOT DETECTED; SARS-CoV-2 -RESP PCR PANEL NOT DETECTED
--- NOTE | 2020-10-12 14:27 | CT Report ---
PROCEDURE: HEAD WO INDICATIONS: falling, shunt TECHNIQUE: Noncontrast 4.5 mm thick angled axial sections acquired from the foramen magnum to the vertex. For r adiation dose reduction, the following was used: automated exposure control, adjustment of mA and/or kV according to patient size. COMPARISON: 06/07/2020, 07/23/2019. FINDINGS: Image quality: Diagnostic. CSF spaces: There is a right posterior parietal ventricle shunt catheter redemonstrated with the tip extending across midline into the frontal horn of the left lateral ventricle. The ventricles appear enlarged but stable in size compared to the prior studies. There is moderate vertebral volume loss. B sita cisterns are patent. No extra-axial fluid collections. Brain: No intracranial hemorrhage, mass, or mass effect. Ngo-white matter interface appears preserv ed. There are subcortical and periventricular white matter hypodensities consistent with moderate chr onic white matter small vessel ischemic changes. Skull and face: Calvarium and visualized facial bones demonstrate no acute fractures. Sinuses: Visualized sinuses and mastoids are clear. IMPRESSION: 1. No definite acute intracranial abnormality. 2. Right posterior parietal ventricle shunt catheter appears unchanged in location, with the tip exte nding across midline into the frontal horn of the left lateral ventricle. 3. Moderate chronic white matter small vessel ischemic changes and cerebral volume loss. 4. Ventriculomegaly similar in appearance compared to the prior studies. Reviewed by: William Flores MD on 10/12/2020 1:26 PM [facility] Approved by: William Flores MD on 10/12/2020 1:26 PM [facility] Station ID: [id number]
--- NOTE | 2020-10-12 14:40 | XRAY Report ---
PROCEDURE: Cervical Spine 2 View INDICATIONS: SHUNTOGRAM/ FALLING TECHNIQUE: 2 view(s) of the cervical spine were acquired. COMPARISON: CT head, CT abdomen pelvis 10/12/2020. FINDINGS: Bones: No gross fractures or dislocations. However, there is limited visualization on the lateral vi ew. Multilevel uncovertebral hypertrophy is present. Soft tissues: No prevertebral soft tissue swelling. A right-sided CAR ELECTRONICS INSTALLER shunt is noted. A portion is n ot fully visualized within the given [id number]. Shunt appears contiguous with the right neck and within visualized portions of the right upper thorax. IMPRESSION: 1. Right-sided shunt not fully included within the [id number] as described above. Visualized porti ons are unremarkable. While it is noted no gross discontinuity within the visualized portions of the CT head as well as CT abdomen and pelvis, there is felt to be a gap in the coverage overlap between t he x-ray chest and CT abdomen. As clinically indicated, single modality evaluation for shunt is recom mended which includes skull, neck, chest and abdomen and pelvis.. Reviewed by: Ema Resendiz MD on 10/12/2020 2:39 PM PST Approved by: Ema Resendiz MD on 10/12/2020 2:39 PM PST Station ID: [id number]
--- NOTE | 2020-10-12 14:42 | XRAY Report ---
PROCEDURE: Chest 1 View X-Ray INDICATIONS: SHUNTOGRAM/ FALLING TECHNIQUE: One view of the chest was acquired. COMPARISON: X-ray cervical spine 10/12/2020, CT abdomen and pelvis and CT head 10/12/2020. FINDINGS: Surgical changes and devices: Incompletely visualized right-sided QUARTZ ORIENTATOR shunt is noted. Visualized porti ons appear contiguous. Lungs and pleura: There is blunting of the left costophrenic angle. Mediastinum: Mediastinal contours appear normal. Heart size is mildly prominent. Bones and chest wa ll: No suspicious bony lesions. Overlying soft tissues appear unremarkable. IMPRESSION: 1. Blunting of the left costophrenic angle suggestive of trace effusion versus scarring. Reviewed by: Ema Resendiz MD on 10/12/2020 2:40 PM PST Approved by: Ema Resendiz MD on 10/12/2020 2:40 PM PST Station ID: [id number]
--- NOTE | 2020-10-12 14:51 | CT Report ---
PROCEDURE: Abdomen/Pelvis W INDICATIONS: abd ttp, fever CONTRAST: IV CONTRAST: Optiray 320 ml: 100 PO CONTRAST: *NO PO CONTRAST TECHNIQUE: After the administration of intravenous contrast, 5 mm thick sections acquired from the diaphragms to the symphysis. 5 mm thick coronal and sagittal reformats were acquired. For radiation dose reducti on, the following was used: automated exposure control, adjustment of mA and/or kV according to caren ent size. COMPARISON: None. FINDINGS: Image quality: There is mild motion artifact. ABDOMEN: Lung bases: Dependent atelectasis demonstrated bilaterally in the lung bases. Heart size is borderlin e enlarged. There is coronary arterial vascular calcification partially visualized. There is a small hiatal hernia. Solid organs: Evaluation of the liver demonstrates no focal hepatic lesions. Gallbladder appears wit hin normal limits without calcified gallstones. Biliary system is non dilated. The spleen is normal in size. Pancreas enhances normally without peripancreatic fat stranding or fluid collections. No ad renal nodules. Kidneys demonstrate no hydronephrosis. There is a right renal cortical cyst. Peritoneum and bowel: Small bowel loops demonstrate normal wall thickness and caliber. The sigmoid co kena is nondistended with suggestion of mild wall thickening. Colonic diverticulosis is present withou t acute diverticulitis. No free fluid or air. There is a loculated fluid collection posterior to the right hepatic lobe measuring approximately 5.4 x 1.4 x 1.6 cm with 2 internal foci of calcifications. Nodes and vessels: No retroperitoneal or mesenteric adenopathy by size criteria. Aorta and inferior vena cava are normal in size. Miscellaneous: There is a right chest and abdominal wall CUMULATIVE EFFECTS ANALYST shunt catheter with the tip extending to the right lower quadrant. No associated fluid collections along its course. No ventral hernias. PELVIS: Genitourinary: Bladder wall thickness is normal. Miscellaneous: There is a small left inguinal hernia containing a short segment of small bowel. No a ssociated evidence of bowel obstruction or strangulation. No inguinal adenopathy. Bones: No suspicious bony lesions. There are mild endplate compression deformities along the superi or and inferior endplates of L3 as well as the superior endplate of L2. Findings are of indeterminate acuity. No retropulsed fragments in the spinal canal. 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 Moderate facet arthropathy also demonstrated in the l ower lumbar spine. IMPRESSION: 1. Mild segmental wall thickening of the sigmoid colon may reflect a mild colitis or artifact due to nondistention. Colonic diverticulosis is present without acute diverticulitis. 2. Small loculated fluid collection demonstrated posterior to the right hepatic lobe with 2 internal foci of calcifications. The finding is nonspecific but suggestive of sequelae of prior infection or t rauma. The differential includes an abscess. Recommend correlation clinically. 3. CUMULATIVE EFFECTS ANALYST shunt catheter appears intact along its visualized course without associated fluid collections. 4. Small left inguinal hernia containing a short segment of small bowel. No evidence of associated elisha wel strangulation or obstruction. Reviewed by: William Flores MD on 10/12/2020 1:50 PM [facility] Approved by: William Flores MD on 10/12/2020 1:50 PM [facility] Station ID: [id number]
[2020-10-12] MEDS ORDERED: ACETAMINOPHEN 325 MG TABLET PO STA (15:23)
[2020-10-12] MEDS ORDERED: SODIUM CHLORIDE FLUSH 0.9% 10 ML SYRINGE IVP PRN (15:46)
[2020-10-12] MEDS ORDERED: ONDANSETRON 4 MG/2 ML VIAL IVP PRN (15:46)
--- NOTE | 2020-10-12 15:55 | HISTORY & PHYSICAL EXAMINATION ---
Chief Complaint - Chief Complaint Chief Complaint: AMS History of Present Illness - Admitted From Admitted From:: ER - History Obtained From Records Reviewed: [facility] History obtained from: [facility] and ER report Exam Limitations: pt is confused - History of Present Illness HPI Comment/Other: This a 85-year-old female with A medical history Significant of normal pressure hydrocephalus and dementia who presents with increased confusion and increased falls over the last 2 days and fever on today. pt confused and could not provide medical history. Patient's daughter is bedside to provide medical history. she report patient at least had twice falls for in last week. pt complained of left posterior headache after she had fall. pt was Recently placed into assisted living [facility]. Patient had a urinary tract infection found in her primary care office. Because the patient also complained diarrhea at the time, patient has no obviously symptoms from the UTI, per her daughter report, patient was not given antibiotics. she had a DIETITIAN CONSULTANT shunt which was placed on [address] Cho in [place]. CT of the head shows no interval change or increase in ventriculomegaly, and No obvious shunt malfunction noting the radiologist's comments on image study on neck, and abdomen/pelvis. Small loculated fluid collection demonstrated posterior to the right hepatic lobe in CT of abdomen/pelvis. She denies abdominal or pelvis pain or tenderness, no right upper quadrant tenderness to correlate with potential liver abscess, Suspect this is a chronic finding. In the ER, patient was found febrile at 38.2 degree temperature, HR 105, Tachypnea, normative blood pressure. Given above medical issues, patient was consulted for admission. Discussed the care goal with the patient's daughter at the bedside, The patient had a POLST form, Patient is DNR. History - Family & Social History Family History Comment/Other: Patient confused, she could not provide family history. Patient's daughter report her grandfather from her mother side in the age 50 of heart attack, Her grandmother from her mother side in the age 90, age related complication. Social History Notes: Patient confused, she could not provide social history. Ramesh lopez's daughter report patient is remote Cigarette smoker and alcoholism, but pt quit smoking at 1980, and quit alcohol at 2004. Meds/Allgy - Home Medications Home Medications: Ambulatory Orders Medication Instructions Recorded Confirmed No Known Home Medications 10/12/20 10/12/20 - Allergies Allergies/Adverse Reactions: Allergies Allergy/AdvReac Type Severity Reaction Status Date / Time No Known Drug Allergies Allergy Verified 10/12/20 11:55 Review of Systems - Other Findings Other Findings: Patient confused, she could nod answer ROS questions Prior Level of Functionality: Patient has a history of dementia, She is currently under care of assisting nurse facility of [facility] Exam - Vital Signs Vital Signs: Vital Signs x48h Temp Pulse Resp BP Pulse Ox 10/12/20 15:30 86 24 124/76 95 10/12/20 15:00 87 25 H 136/60 H 95 10/12/20 14:30 37.6 C 82 26 H 127/61 98 10/12/20 14:00 88 24 123/54 L 98 10/12/20 13:37 89 23 129/91 H 96 10/12/20 13:00 38.2 C H 96 24 122/60 97 10/12/20 12:29 95 19 127/68 100 10/12/20 11:51 37 C 105 H 18 134/52 H 95 - Physical Exam General Appearance: positive: No acute distress, Alert. negative: Lethargic Eyes Bilateral: positive: Normal inspection, PERRL, No lid inflammation ENT: positive: ENT inspection nml, No signs of dehydration. negative: Purulent nasal drainage Neck: positive: Nml inspection, Trachea midline. negative: Thyromegaly, Tracheal deviation Respiratory: positive: Chest non-tender, No respiratory distress. negative: Wheezes, Rales Cardiovascular: positive: Regular rate & rhythm, No murmur. negative: Tachycardia, Bradycardia, Systolic murmur, Diastolic murmur Peripheral Pulses: positive: 2+ Abdomen: positive: Non-tender, Nml bowel sounds, No distention. negative: Tenderness, Guarding, Rebound Back: positive: Nml inspection Skin: positive: Color nml, No rash, Warm, Dry. negative: Cyanosis, Diaphoresis, Pallor, Skin rash Extremities: positive: Non-tender, Nml appearance. negative: Calf tenderness Neurologic/Psychiatric: positive: Sensation nml. negative: Weakness, Sensory loss, Facial droop, Slurred/abnml speech Sepsis Event Note (H) - Evaluation Current Stage of Sepsis: Sepsis Possible source of Sepsis: positive: GI tract/intra-abdominal, Genitourinary - Sepsis Criteria Sepsis Criteria: Recorded Temperature greater than 38.3C or Less than 36C, Recorded Heart Rate greater than 90 bpm, Recorded Respiratory Rate greater than 20, WBC count greater than 12,000 or less than 4000 Conclusion/Plan - Problem List (1) Sepsis Conclusion/Plan: Patient present fever, elevated WBC, Tachypnea, tachycardia, UTI is likely as the infection resource. Patient's blood pressure is stable. Patient had a 96% sats on room air. Urine culture and blood culture are pending. ER already give patient to 2g Rocephin, we will continue Rocephin and gently intravenous IV fluids. Continue vital signs and laboratory cureman (2) Altered mental status Conclusion/Plan: Patient has a history of dementia, but recently patient become more confused and more fall in nurse home. Patient had a history of normal pressure hydronephrosis. CAT scan of the head, x-ray of the neck, CAT scan of the abdomen/pelvis Did not reveal DIETITIAN CONSULTANT shunt blockage and infection or abscess. Patient had low degree fever, and patient is likely have UTI. It is likely caused by urinary tract infection to cause acute confused. We will continue intravenous antibiotics, continue neuro check Qualifiers: Altered mental status type: transient alteration of awareness Qualified Code(s): R40.4 - Transient alteration of awareness (3) UTI (urinary tract infection) Conclusion/Plan: Patient was reported she had urinary tract infection in outpatient, patient was not treated because of without symptoms. Over urinalysis indicated Patient may have urine tract infection. Urine culture is pending. pt had Elevated WBC, And low degree fever as well. Patient was given Rocephin in the ER, we will continue intravenous antibiotics and gently intravenous IV fluids (4) Normal pressure hydrocephalus Conclusion/Plan: Patient had normal pressure hydrocephalus, Patient had serial image studies including CT of the head, x-ray of the neck, and CT of the abdomen/pelvis which reveal DIETITIAN CONSULTANT shunt is stable. We will continue neuro check, and closely monitor pt's mental status. (5) Dementia Conclusion/Plan: Patient has a history of dementia, not on treatment yet. pt has no home meds. We will continue supportive to patient (6) Acute on chronic renal insufficiency Conclusion/Plan: Patient has creatinine 1.3, pt usually has creatinine between 1.1-1.3, continue keep pt hydration and lab monitor. avoid nephrotoxins - Lab Results Fish Bones: 10/12/20 12:36 10/12/20 12:36 Core Measures - Anticipated LOS I expect patient to be DC'd or transferred within 96 hours.: Yes - DVT/VTE - Prophylaxis VTE/DVT Device ordered at admit?: Yes VTE/DVT Prophylaxis med ordered at admit?: Yes
[2020-10-12] MEDS ORDERED: SODIUM CHLORIDE 0.9% 1,000 ML IV SCH (16:00)
[2020-10-12] MEDS: SODIUM CHLORIDE 0.9% 1,000 ML IV SCH (17:13)
[2020-10-12] MEDS: SODIUM CHLORIDE FLUSH 0.9% 10 ML SYRINGE IVP SCH (17:13)
[2020-10-12] MEDS: ACETAMINOPHEN 325 MG TABLET PO PRN (22:23)
[2020-10-13] MEDS: SODIUM CHLORIDE FLUSH 0.9% 10 ML SYRINGE IVP SCH ×3 (03:44→17:05)
[2020-10-13] MEDS ORDERED: BENZOCAINE/MENTHOL LOZENGE MM PRN (04:44)
[2020-10-13] MEDS: SODIUM CHLORIDE 0.9% 1,000 ML IV SCH (04:49)
[2020-10-13 05:35] LABS: BASOPHILS % (AUTO) 0.4 %; EOSINOPHILS % (AUTO) 13.5 %; HCT - HEMATOCRIT 29.4 % (37.0-47.0); HGB - HEMOGLOBIN 9.3 g/dL (12.0-16.0); LYMPHOCYTES % (AUTO) 14.7 %; MEAN CORPUSCULAR HEMOGLOBIN 32.3 pg (27.0-31.0); MEAN CORPUSCULAR HGB CONC 31.6 g/dL (32.0-36.0); MEAN CORPUSCULAR VOLUME 102.1 fL (81.0-99.0); MEAN PLATELET VOLUME 9.1 fL (7.9-10.8); MONOCYTES % (AUTO) 6.3 %; NEUTROPHILS % (AUTO) 64.2 %; PLT - PLATELET COUNT 303 10^3/uL (130-450); RED BLOOD COUNT 2.88 10^6/uL (4.20-5.40); RED CELL DISTRIBUTION WIDTH 14.8 % (12.0-15.0); WHITE BLOOD COUNT 9.2 x10^3/uL (4.8-10.8)
[2020-10-13 05:38] LABS: ABNORMAL LYMPHS % (MANUAL) 0 %; BAND NEUTROPHILS % (MANUAL) 0 %
[2020-10-13 05:49] LABS: CALCIUM 8.6 mg/dL (8.5-10.3); CREATININE 0.9 mg/dL (0.4-1.0); MAGNESIUM 1.9 mg/dL (1.7-2.8); POTASSIUM 3.4 mmol/L (3.5-5.0)
[2020-10-13 05:53] LABS: BASOPHILS # (MANUAL) 0.1 10^3/uL (0-0.1); BASOPHILS % (MANUAL) 1 %; EOSINOPHILS # (MANUAL) 0.7 10^3/uL (0-0.7); LYMPHOCYTES # (MANUAL) 1.8 10^3/uL (1.5-3.5); LYMPHOCYTES % (MANUAL) 20 %; MONOCYTES # (MANUAL) 0.4 10^3/uL (0.0-1.0); NEUTROPHILS # (MANUAL) 6.2 10^3/uL (1.5-6.6); PLATELET ESTIMATE, MANUAL NORMAL (130-450,000) (NORMAL); PLATELET MORPHOLOGY NORMAL APPEARANCE (NORMAL); RBC MORPHOLOGY (MULTIPLE) NORMAL APPEARANCE (NORMAL); WBC MORPHOLOGY (MULTIPLE) NORMAL APPEARANCE (NORMAL)
[2020-10-13 05:54] LABS: DIFFERENTIAL COMMENT MANUAL DIFFERENTIAL
[2020-10-13] MEDS: ACETAMINOPHEN 325 MG TABLET PO PRN ×2 (06:54→21:04)
[2020-10-13] MEDS: PANTOPRAZOLE 40 MG TABLET PO SCH (06:54)
[2020-10-13] MEDS ORDERED: POTASSIUM CHLORIDE 20 MEQ TABLET PO ONE ×2 (07:52→08:00)
[2020-10-13] MEDS ORDERED: SODIUM CHLORIDE 0.9% 1,000 ML IV SCH (08:03)
[2020-10-13] MEDS: ENOXAPARIN 40 MG/0.4 ML SYRINGE SUBQ SCH (09:54)
[2020-10-13] MEDS: cefTRIAXone 1 GM in SODIUM CHLORIDE 0.9% MINIBAG 100 ML IV SCH (10:38)
[2020-10-13] MEDS: guaiFENesin/CODEINE 5 ML UDC PO PRN ×2 (14:04→21:04)
--- NOTE | 2020-10-13 16:01 | PROVIDER PROGRESS NOTE ---
Assessment/Plan - Problem List (1) Sepsis Assessment/Plan: 3/2 acute sepsis is resolved. pt has no more fever, WBC is normal, blood culture is negative, Tachycardia and tachypnea are resolved. Update patient's condition to patient's daughter Shefali, answered Questions. Continue antibiotics, Urine culture is pending Patient present fever, elevated WBC, Tachypnea, tachycardia, UTI is likely as the infection resource. Patient's blood pressure is stable. Patient had a 96% sats on room air. Urine culture and blood culture are pending. ER already give patient to 2g Rocephin, we will continue Rocephin and gently intravenous IV fluids. Continue vital signs and laboratory asst (2) Altered mental status Conclusion/Plan: 3/2 improved, pt is alert and oriented herself now. continue neuro check Patient has a history of dementia, but recently patient become more confused and more fall in nurse home. Patient had a history of normal pressure hydronephrosis. CAT scan of the head, x-ray of the neck, CAT scan of the abdomen/pelvis Did not reveal [employer]NAGER shunt blockage and infection or abscess. Patient had low degree fever, and patient is likely have UTI. It is likely caused by urinary tract infection to cause acute confused. We will continue intravenous antibiotics, continue neuro check (3) UTI (urinary tract infection) Conclusion/Plan: 3/2 continue Rocephin and UA culture is pending Patient was reported she had urinary tract infection in outpatient, patient was not treated because of without symptoms. Over urinalysis indicated Patient may have urine tract infection. Urine culture is pending. pt had Elevated WBC, And low degree fever as well. Patient was given Rocephin in the ER, we will continue intravenous antibiotics and gently intravenous IV fluids (4) Normal pressure hydrocephalus Conclusion/Plan: 3/2 stable, no complaints today Patient had normal pressure hydrocephalus, Patient had serial image studies including CT of the head, x-ray of the neck, and CT of the abdomen/pelvis which reveal [employer] MANAGER shunt is stable. We will continue neuro check, and closely monitor pt's mental status. (5) Dementia Conclusion/Plan: Patient has a history of dementia, not on treatment yet. pt has no home meds. We will continue supportive to patient (6) Acute on chronic renal insufficiency Conclusion/Plan: 3/2 improved significantly, creatinine is 0.9 now. Patient has creatinine 1.3, pt usually has creatinine between 1.1-1.3, continue keep pt hydration and lab monitor. avoid nephrotoxins (2) Altered mental status Qualifiers: Altered mental status type: transient alteration of awareness Qualified Code(s): R40.4 - Transient alteration of awareness - Current Meds Current Meds: Current Medications Generic Name Dose Route Start Last Admin Trade Name Freq PRN Reason Stop Dose Admin Acetaminophen 650 mg 10/12/20 15:46 10/13/20 06:54 Acetaminophen 325 Mg Tablet PO 650 mg Q4HR PRN Administration Pain 1 to 4 Enoxaparin Sodium 40 mg 10/13/20 09:00 10/13/20 09:54 Enoxaparin 40 Mg/0.4 Ml Syringe SUBQ 40 mg DAILY SHARLENE Administration Guaifenesin/Codeine Phosphate 5 ml 10/13/20 07:12 10/13/20 14:04 Guaifenesin/Codeine 5 Ml Udc PO 5 ml Q6HR PRN Administration Cough Ceftriaxone Sodium 1 gm/ 100 mls @ 200 mls/hr 10/13/20 09:00 10/13/20 11:20 Sodium Chloride IV 10/18/20 09:29 Infused DAILY SHARLENE Infusion Pantoprazole Sodium 40 mg 10/13/20 07:00 10/13/20 06:54 Pantoprazole 40 Mg Tablet PO 40 mg QDAC SHARLENE Administration Sodium Chloride 10 ml 10/12/20 17:00 10/13/20 09:54 Sodium Chloride Flush 0.9% 10 Ml Syringe IVP 10 ml 0100,0900,1700 SHARLENE Administration Throat Lozenges 1 lozenge 10/13/20 04:44 10/13/20 04:54 Benzocaine/Menthol Lozenge MM 1 lozenge Q2HR PRN Administration Throat pain - Lab Result Fish Bone Diagrams: 10/13/20 05:30 10/13/20 05:10 - Additional Planning My Orders: My Active Orders 10/12/20 15:46 Activity Orders [RC] Q2HR IO [RC] IOSHIFT Initiate Bowel Care Protocol [RC] .protocol Initiate Line Care Protocol [RC] QSHIFT Initiate Personal Care Protoco [RC] .protocol Telemetry- [RC] Q4HR Vital Signs [RC] Q4HR Acetaminophen [Tylenol] 650 mg PO Q4HR PRN Ondansetron Inj [Zofran Inj] 4 mg IVP Q6HR PRN Sodium Chloride Flush 0.9% [Normal Saline Flush 0.9%] 10 ml IVP PRN PRN Code Status [OTHERS] Routine Condition of Patient [OTHERS] Routine DVT Prophylaxis [OTHERS] Routine 10/12/20 15:49 SCDs [RC] QSHIFT 10/12/20 15:53 Neuro Check [RC] QSHIFT 10/12/20 Dinner Soft Mechanical Diet [DIET] 10/12/20 17:00 Sodium Chloride Flush 0.9% [Normal Saline Flush 0.9%] 10 ml IVP 0100,0900,1700 10/12/20 18:05 Code Status [OTHERS] Routine 10/13/20 04:44 Benzocaine/Menthol [Cepacol] 1 lozenge MM Q2HR PRN 10/13/20 07:00 Pantoprazole [Protonix] 40 mg PO QDAC 10/13/20 09:00 Enoxaparin [Lovenox] 40 mg SUBQ DAILY cefTRIAXone [Rocephin] 1 gm Sodium Chloride 0.9% Minibag [Normal Saline 0.9% Minibag] 100 ml IV DAILY 10/14/20 05:00 BMP - BASIC METABOLIC PANEL [CHEM] DAILYLAB CBC - COMP BLD CT W/AUTO DIFF [HEME] DAILYLAB MAGNESIUM [CHEM] DAILYLAB PHOSPHORUS [CHEM] DAILYLAB 10/15/20 05:00 BMP - BASIC METABOLIC PANEL [CHEM] DAILYLAB CBC - COMP BLD CT W/AUTO DIFF [HEME] DAILYLAB 10/16/20 05:00 BMP - BASIC METABOLIC PANEL [CHEM] DAILYLAB CBC - COMP BLD CT W/AUTO DIFF [HEME] DAILYLAB 10/17/20 05:00 BMP - BASIC METABOLIC PANEL [CHEM] DAILYLAB CBC - COMP BLD CT W/AUTO DIFF [HEME] DAILYLAB Subjective - Subjective Patient Reports: Feeling Better Objective Vital Signs: Vital Signs - 24 hr 10/12/20 10/12/20 10/12/20 16:00 16:30 16:54 Temperature 37.1 C 37.3 C Heart Rate 82 79 78 Heart Rate [ 78 Brachial] Heart Rate [ Sitting] Heart Rate [ Supine] Respiratory 22 24 21 Rate Blood Pressure 132/54 H 110/63 107/77 Blood Pressure 127/60 [Left Brachial artery] Blood Pressure [Right Radial artery] Blood Pressure [Sitting] Blood Pressure [Supine] O2 Saturation 93 96 98 O2 Saturation [ Supine] 10/12/20 10/13/20 10/13/20 21:00 00:03 03:46 Temperature 36.6 C 36.8 C 36.3 C L Heart Rate Heart Rate [ 73 63 76 Brachial] Heart Rate [ Sitting] Heart Rate [ Supine] Respiratory 20 16 20 Rate Blood Pressure Blood Pressure 98/69 130/43 L [Left Brachial artery] Blood Pressure 119/60 [Right Radial artery] Blood Pressure [Sitting] Blood Pressure [Supine] O2 Saturation 96 99 96 O2 Saturation [ Supine] 10/13/20 10/13/20 10/13/20 09:00 11:44 11:45 Temperature 36.5 C Heart Rate Heart Rate [ 68 Brachial] Heart Rate [ 68 Sitting] Heart Rate [ 66 Supine] Respiratory 18 Rate Blood Pressure Blood Pressure 122/55 L [Left Brachial artery] Blood Pressure [Right Radial artery] Blood Pressure 120/57 L [Sitting] Blood Pressure 120/57 L [Supine] O2 Saturation 97 O2 Saturation [ 96 Supine] 10/13/20 12:41 Temperature 36.6 C Heart Rate Heart Rate [ 72 Brachial] Heart Rate [ Sitting] Heart Rate [ Supine] Respiratory 20 Rate Blood Pressure Blood Pressure 120/57 L [Left Brachial artery] Blood Pressure [Right Radial artery] Blood Pressure [Sitting] Blood Pressure [Supine] O2 Saturation 97 O2 Saturation [ Supine] Oxygen O2 Source Room air I&O (Last 24 Hrs): Intake and Output Totals x24h 10/11/20 10/12/20 10/13/20 23:59 23:59 23:59 Intake Total 1100 2064. Balance 1100 2064. General: Alert, No acute distress HEENT: Atraumatic Neck: Supple Lymphatic: no adenopathy Neuro: Alert, Non Focal Cardiovascular: Regular rate, Normal S1, Normal S2 Respiratory: Chest non-tender, No respiratory distress Abdomen: Normal bowel sounds, Soft Extremities: Normal pulses - Results Results: Laboratory Results WBC 9.2 x10^3/uL (4.8-10.8) 10/13/20 05:30 RBC 2.88 10^6/uL (4.20-5.40) L 10/13/20 05:30 Hgb 9.3 g/dL (12.0-16.0) L 10/13/20 05:30 Hct 29.4 % (37.0-47.0) L 10/13/20 05:30 MCV 102.1 fL (81.0-99.0) H 10/13/20 05:30 MCH 32.3 pg (27.0-31.0) H 10/13/20 05:30 MCHC 31.6 g/dL (32.0-36.0) L 10/13/20 05:30 RDW 14.8 % (12.0-15.0) 10/13/20 05:30 Plt Count 303 10^3/uL (130-450) 10/13/20 05:30 MPV 9.1 fL (7.9-10.8) 10/13/20 05:30 Neut # (Auto) Not Reportable 10/13/20 05:10 Lymph # (Auto) Not Reportable 10/13/20 05:10 Kinney # (Auto) Not Reportable 10/13/20 05:10 Eos # (Auto) Not Reportable 10/13/20 05:10 Baso # (Auto) Not Reportable 10/13/20 05:10 Absolute Nucleated RBC Not Reportable 10/13/20 05:10 Total Counted 100 10/13/20 05:30 Band Neuts % (Manual) 0 % (0-10) 10/13/20 05:30 Abnorm Lymph % (Manual) 0 % 10/13/20 05:30 Nucleated RBC % Not Reportable 10/13/20 05:10 Neutrophils # (Manual) 6.2 10^3/uL (1.5-6.6) 10/13/20 05:30 Lymphocytes # (Manual) 1.8 10^3/uL (1.5-3.5) 10/13/20 05:30 Monocytes # (Manual) 0.4 10^3/uL (0.0-1.0) 10/13/20 05:30 Eosinophils # (Manual) 0.7 10^3/uL (0-0.7) 10/13/20 05:30 Basophils # (Manual) 0.1 10^3/uL (0-0.1) 10/13/20 05:30 Differential Comment MANUAL DIFFERENTIAL 10/13/20 05:30 WBC Morphology NORMAL APPEARANCE (NORMAL) 10/13/20 05:30 Platelet Estimate NORMAL (130-450,000) (NORMAL) 10/13/20 05:30 Platelet Morphology NORMAL APPEARANCE (NORMAL) 10/13/20 05:30 RBC Morph Micro Appear NORMAL APPEARANCE (NORMAL) 10/13/20 05:30 Sodium 136 mmol/L (135-145) 10/13/20 05:10 Potassium 3.4 mmol/L (3.5-5.0) L 10/13/20 05:10 Chloride 105 mmol/L (101-111) 10/13/20 05:10 Carbon Dioxide 21 mmol/L (21-32) 10/13/20 05:10 Anion Gap 10.0 (6-13) 10/13/20 05:10 BUN 18 mg/dL (6-20) 10/13/20 05:10 Creatinine 0.9 mg/dL (0.4-1.0) 10/13/20 05:10 Estimated GFR (MDRD) 60 (>89) L 10/13/20 05:10 Glucose 93 mg/dL (70-100) 10/13/20 05:10 Lactic Acid 1.2 mmol/L (0.5-2.2) 10/12/20 12:36 Calcium 8.6 mg/dL (8.5-10.3) 10/13/20 05:10 Phosphorus 3.0 mg/dL (2.5-4.6) 10/13/20 05:10 Magnesium 1.9 mg/dL (1.7-2.8) 10/13/20 05:10 Total Bilirubin 0.8 mg/dL (0.2-1.0) 10/12/20 12:36 AST 35 IU/L (10-42) 10/12/20 12:36 ALT 22 IU/L (10-60) 10/12/20 12:36 Alkaline Phosphatase 50 IU/L (42-121) 10/12/20 12:36 Total Protein 8.1 g/dL (6.7-8.2) 10/12/20 12:36 Albumin 3.8 g/dL (3.2-5.5) 10/12/20 12:36 Globulin 4.3 g/dL (2.1-4.2) H 10/12/20 12:36 Albumin/Globulin Ratio 0.9 (1.0-2.2) L 10/12/20 12:36 Urine Color YELLOW 10/12/20 12:08 Urine Clarity CLEAR (CLEAR) 10/12/20 12:08 Urine pH 6.0 PH (5.0-7.5) 10/12/20 12:08 Ur Specific Crowder 1.015 (1.002-1.030) 10/12/20 12:08 Urine Protein NEGATIVE mg/dL (NEGATIVE) 10/12/20 12:08 Urine Glucose (UA) NEGATIVE mg/dL (NEGATIVE) 10/12/20 12:08 Urine Ketones NEGATIVE mg/dL (NEGATIVE) 10/12/20 12:08 Urine Occult Blood NEGATIVE (NEGATIVE) 10/12/20 12:08 Urine Nitrite NEGATIVE (NEGATIVE) 10/12/20 12:08 Urine Bilirubin NEGATIVE (NEGATIVE) 10/12/20 12:08 Urine Urobilinogen 0.2 (NORMAL) E.U./dL (NORMAL) 10/12/20 12:08 Ur Leukocyte Esterase SMALL (NEGATIVE) H 10/12/20 12:08 Urine RBC 0-5 /HPF (0-5) 10/12/20 12:08 Urine WBC 11-25 /HPF (0-5) H 10/12/20 12:08 Ur Squamous Epith Cells FEW Squamous (<= Few) 10/12/20 12:08 Urine Bacteria Few /HPF (None Seen) 10/12/20 12:08 Urine Casts 0-2 Hyaline Casts /LPF 10/12/20 12:08 Urine Mucus Few Strands 10/12/20 12:08 Urine Culture Comments INDICATED 10/12/20 12:08 Nasal Adenovirus (PCR) NOT DETECTED 10/12/20 12:40 Nasal B. parapertussis DNA (PCR) NOT DETECTED 10/12/20 12:40 Nasal Coronavir 229E PCR NOT DETECTED 10/12/20 12:40 Nasal Coronavir HKU1 PCR NOT DETECTED 10/12/20 12:40 Nasal Coronavir NL63 PCR NOT DETECTED 10/12/20 12:40 Nasal Coronavir OC43 PCR NOT DETECTED 10/12/20 12:40 Nasal Enterovir/Rhinovir PCR NOT DETECTED 10/12/20 12:40 Nasal Influenza B PCR NOT DETECTED 10/12/20 12:40 Nasal Influenza A PCR NOT DETECTED 10/12/20 12:40 Nasal Parainfluen 1 PCR NOT DETECTED 10/12/20 12:40 Nasal Parainfluen 2 PCR NOT DETECTED 10/12/20 12:40 Nasal Parainfluen 3 PCR NOT DETECTED 10/12/20 12:40 Nasal Parainfluen 4 PCR NOT DETECTED 10/12/20 12:40 Nasal RSV (PCR) NOT DETECTED 10/12/20 12:40 Nasal B.pertussis DNA PCR NOT DETECTED 10/12/20 12:40 Nasal C.pneumoniae (PCR) NOT DETECTED 10/12/20 12:40 Mohinder Human Metapneumo PCR NOT DETECTED 10/12/20 12:40 Nasal M.pneumoniae (PCR) NOT DETECTED 10/12/20 12:40 Nasal SARS-CoV-2 (PCR) NOT DETECTED 10/12/20 12:40 Sepsis Event Note (H) - Evaluation Current Stage of Sepsis: Sepsis Possible source of Sepsis: positive: GI tract/intra-abdominal, Genitourinary - Sepsis Criteria Sepsis Criteria: Recorded Temperature greater than 38.3C or Less than 36C, Recorded Heart Rate greater than 90 bpm, Recorded Respiratory Rate greater than 20, WBC count greater than 12,000 or less than 4000 ABX Reporting Has patient been on IV antibiotics over the past 48 hours?: Yes Current Medications - Current Medications Current Medications: Active Medications Acetaminophen (Acetaminophen 325 Mg Tablet) 650 mg PO Q4HR PRN PRN Reason: Pain 1 to 4 Last Admin: 10/13/20 06:54 Dose: 650 mg Documented by: Enoxaparin Sodium (Enoxaparin 40 Mg/0.4 Ml Syringe) 40 mg SUBQ DAILY [facility] Last Admin: 10/13/20 09:54 Dose: 40 mg Documented by: Guaifenesin/Codeine Phosphate (Guaifenesin/Codeine 5 Ml Udc) 5 ml PO Q6HR PRN PRN Reason: Cough Last Admin: 10/13/20 14:04 Dose: 5 ml Documented by: Ceftriaxone Sodium 1 gm/ (Sodium Chloride) 100 mls @ 200 mls/hr IV DAILY [facility] Stop: 10/18/20 09:29 Last Infusion: 10/13/20 11:20 Dose: Infused Documented by: Ondansetron HCl (Ondansetron 4 Mg/2 Ml Vial) 4 mg IVP Q6HR PRN PRN Reason: Nausea / Vomiting Pantoprazole Sodium (Pantoprazole 40 Mg Tablet) 40 mg PO QDAC [facility] Last Admin: 10/13/20 06:54 Dose: 40 mg Documented by: Sodium Chloride (Sodium Chloride Flush 0.9% 10 Ml Syringe) 10 ml IVP PRN PRN PRN Reason: NEEDED PER PROVIDER ORDERS Sodium Chloride (Sodium Chloride Flush 0.9% 10 Ml Syringe) 10 ml IVP 0100,0900,1700 [facility] Last Admin: 10/13/20 09:54 Dose: 10 ml Documented by: Throat Lozenges (Benzocaine/Menthol Lozenge) 1 lozenge MM Q2HR PRN PRN Reason: Throat pain Last Admin: 10/13/20 04:54 Dose: 1 lozenge Documented by: No Known Home Medications 10/12/20
[2020-10-14] MEDS: SODIUM CHLORIDE FLUSH 0.9% 10 ML SYRINGE IVP SCH ×2 (00:19→09:14)
[2020-10-14 05:25] LABS: BASOPHILS % (AUTO) 0.4 %; EOSINOPHILS % (AUTO) 14.6 %; HGB - HEMOGLOBIN 9.3 g/dL (12.0-16.0); LYMPHOCYTES % (AUTO) 32.7 %; MEAN CORPUSCULAR HEMOGLOBIN 31.7 pg (27.0-31.0); MEAN CORPUSCULAR VOLUME 102.4 fL (81.0-99.0); MEAN PLATELET VOLUME 9.7 fL (7.9-10.8); MONOCYTES % (AUTO) 9.3 %; NEUTROPHILS % (AUTO) 42.4 %; PLT - PLATELET COUNT 354 10^3/uL (130-450); RED BLOOD COUNT 2.93 10^6/uL (4.20-5.40); RED CELL DISTRIBUTION WIDTH 14.6 % (12.0-15.0); WHITE BLOOD COUNT 7.2 x10^3/uL (4.8-10.8)
[2020-10-14 05:35] LABS: ABNORMAL LYMPHS % (MANUAL) 0 %
[2020-10-14 05:43] LABS: CALCIUM 8.9 mg/dL (8.5-10.3); CREATININE 0.9 mg/dL (0.4-1.0); MAGNESIUM 1.9 mg/dL (1.7-2.8); POTASSIUM 3.7 mmol/L (3.5-5.0)
[2020-10-14 05:54] LABS: BAND NEUTROPHILS % (MANUAL) 3 %; DIFFERENTIAL COMMENT MANUAL DIFFERENTIAL; EOSINOPHILS # (MANUAL) 1.2 10^3/uL (0-0.7); LYMPHOCYTES # (MANUAL) 2.4 10^3/uL (1.5-3.5); LYMPHOCYTES % (MANUAL) 33 %; METAMYELOCYTES % (MANUAL) 1 %; MONOCYTES # (MANUAL) 0.3 10^3/uL (0.0-1.0); MYELOCYTES % (MANUAL) 1 %; NEUTROPHILS # (MANUAL) 3.2 10^3/uL (1.5-6.6); PLATELET ESTIMATE, MANUAL NORMAL (130-450,000) (NORMAL); RBC MORPHOLOGY (MULTIPLE) NORMAL APPEARANCE (NORMAL)
[2020-10-14] MEDS: PANTOPRAZOLE 40 MG TABLET PO SCH (06:56)
[2020-10-14] MEDS: cefTRIAXone 1 GM in SODIUM CHLORIDE 0.9% MINIBAG 100 ML IV SCH (09:12)
[2020-10-14] MEDS: ENOXAPARIN 40 MG/0.4 ML SYRINGE SUBQ SCH (09:14)
--- NOTE | 2020-10-14 11:34 | Discharge Plan ---
"Discharge Plan for SNF / [facility] - Discharge Plan And Transition Orders Problem Reviewed?: Yes Disposition: 01 Home, Self Care Condition: Stable Allergies and Adverse Reactions: Allergies Allergy/AdvReac Type Severity Reaction Status Date / Time No Known Drug Allergies Allergy Verified 10/12/20 11:55 Health Concerns: UTI/sepsis Plan of Treatment: pt was found to have sepsis, likely from her UTI. pt is prescribed antibiotics to finish the treatment course, advise to keep pt hydration as well. Care Goals: stabilization and improvement of pt's medical conditions Assessment: discussed the care plan with pt's Daughter Shefali on yesterday, answered her questions, she understood. - SNF / [facility] Transition Orders Admit to (Facility): [facility] Under the care of (Name): Medical provider of [facility] Discharge Diagnosis: Sepsis, UTI, Normal pressure hydrocephalus, Dementia, acute on chronic renal insufficiency, AMS. Medicare Certification Statement: I certify that Post Hospital shelter care is medically necessary on a continuing basis for any of the conditions for which she/he is receiving care during hospitalization. Notify PCP of admission and forward orders to primary provider for signature. Weight on admission and: Daily Call PCP immediately if weight increases by: 2 kg Other Notification Orders: Call PCP immediately if patient develops dyspnea, chest pain/tightness or edema. House Bowel Program: Yes Additional Bowel Program Orders: If no BM after 2 days, nurse may give M.O.M. 30ml PO PRN and/or ducolax Supp 1 AL and/or SWAPNA 250mg P.O., and/or senna 1-2 tabs PO. On day 3 nurse may give repeat above order until residents constipation is resolved. Annual Influenza Vaccine (between Apr 14 and November 11): Yes Two-step PPD per [facility] [phone] or approved exception documents: Yes Treatments & Other Orders: pt was found to have sepsis, likely from her UTI. pt is prescribed antibiotics to finish the treatment course, advise to keep pt hydration as well. Medication Orders: PLEASE REFER TO THE DISCHARGE MEDICATION LIST. Insulin Orders?: No - Medications New Prescriptions: guaiFENesin/CODEINE [Robitussin AC] 5 ml PO Q6HR PRN #15 milliunit PRN Reason: Cough Saccharomyces Boulardii [Florastor] 250 mg PO BID 3 Days #6 cap cephALEXin [Keflex] 500 mg PO BID 3 Days #6 cap - Diet Type: Geriatric Texture: Regular Liquids: Thin May have monthly special meal: Yes - Therapies | Activity Rehabilitation Potential: Maximize functional status Activity: Activity as Tolerated"
[2020-10-14 11:41] VITALS: BP 130/57
--- NOTE | 2020-10-14 11:49 | DISCHARGE SUMMARY ---
Discharge Summary Admit Date: 10/12/20 Discharge Date: 10/14/20 Discharging Provider: Jean Marie Gonzalez Primary Care Provider: Elvira Correa Condition at Discharge: Stable Discharge Disposition: 01 Home, Self Care [facility]charge [facility] - DIAGNOSES Discharge Diagnoses with Status of Each Condition: (1) Sepsis Acute sepsis is resolved. Patient present fever, elevated WBC, Tachypnea, tachycardia, UTI is likely as the infection resource in the admission. After antibiotics and IVF, pt Has no more fever, normal range WBC, tachycardia and tachypnea all resolved, blood culture is negative. Patient is prescribed antibiotics continue to finish the treatment course. (2) Altered mental status resolved as pt's baseline. pt has hx of dementia. (3) UTI (urinary tract infection) Patient is prescribed antibiotics continue to finish the treatment course. (4) Normal pressure hydrocephalus stable, no acute complaints. CT of the head show no Definitely acute intracranial abnormality. (5) Dementia Chronic, stable as her baseline (6) Acute on chronic renal insufficiency Resolved. Currently creatinine is 0.9, Keep hydration in the home - HPI History of Present Illness: This a 85-year-old female with A medical history Significant of normal pressure hydrocephalus and dementia who presents with increased confusion and increased falls over the last 2 days and fever on today. pt confused and could not provide medical history. Patient's daughter is bedside to provide medical history. she report patient at least had twice falls for in last week. pt complained of left posterior headache after she had fall. pt was Recently placed into assisted living [facility]. Patient had a urinary tract infection found in her primary care office. Because the patient also complained diarrhea at the time, patient has no obviously symptoms from the UTI, per her daughter report, patient was not given antibiotics. she had a [employer] shunt which was placed on [address] Cho in [place]. CT of the head shows no interval change or increase in ventriculomegaly, and No obvious shunt malfunction noting the radiologist's comments on image study on neck, and abdomen/pelvis. Small loculated fluid collection demonstrated posterior to the right hepatic lobe in CT of abdomen/pelvis. She denies abdominal or pelvis pain or tenderness, no right upper quadrant tenderness to correlate with potential liver abscess, Suspect this is a chronic finding. In the ER, patient was found febrile at 38.2 degree temperature, HR 105, Tachypnea, normative blood pressure. Given above medical issues, patient was consulted for admission. Discussed the care goal with the patient's daughter at the bedside, The patient had a POLST form, Patient is DNR. - HOSPITAL COURSE Hospital Course: Patient was admitted for AMS, fever and sepsis. After the patient was treated with intravenous antibiotics, intravenous IV fluids, patient's recovery is quickly, Acute sepsis was resolved, patient's WBC become normal range, patient has no more fever, patient's tachycardia and tachypnea all resolved, blood culture is negative for bacteremia. pt is prescribed Robitussin for her cough symptoms control as well. Patient is discharged as hemodynamic stable condition. - ALLERGIES Allergies/Adverse Reactions: Allergies Allergy/AdvReac Type Severity Reaction Status Date / Time No Known Drug Allergies Allergy Verified 10/12/20 11:55 - MEDICATIONS Home Medications: Ambulatory Orders Medication Instructions Recorded Confirmed Saccharomyces Boulardii [Florastor] 250 mg PO BID 3 Days #6 cap 10/14/20 cephALEXin [Keflex] 500 mg PO BID 3 Days #6 cap 10/14/20 guaiFENesin/CODEINE [Robitussin AC] 5 ml PO Q6HR PRN #15 milliunit 10/14/20 - PHYSICAL EXAM AT DISCHARGE General Appearance: positive: No acute distress, Alert. negative: Lethargic Eyes Bilateral: positive: Normal inspection, PERRL, No lid inflammation ENT: positive: ENT inspection nml, No signs of dehydration. negative: Purulent nasal drainage Neck: positive: Nml inspection, Trachea midline. negative: Thyromegaly, Tracheal deviation Respiratory: positive: Chest non-tender, No respiratory distress. negative: Wheezes, Rales Cardiovascular: positive: Regular rate & rhythm, No murmur. negative: Tachyca rdia, Bradycardia, Systolic murmur, Diastolic murmur Peripheral Pulses: positive: 2+ Abdomen: positive: Non-tender, Nml bowel sounds, No distention. negative: Tenderness, Guarding, Rebound Back: positive: Nml inspection Skin: positive: Color nml, Warm, Dry. negative: Cyanosis, Diaphoresis, Pallor Extremities: positive: Non-tender, Nml appearance. negative: Calf tenderness Neurologic/Psychiatric: positive: Motor nml, Sensation nml. negative: Weakness, Sensory loss, Facial droop, Slurred/abnml speech - LABS Result Diagrams: 10/14/20 05:08 10/14/20 05:08 - SEPSIS Current Stage of Sepsis: Sepsis Possible source of Sepsis: GI tract/intra-abdominal, Genitourinary Sepsis Criteria: Recorded Temperature greater than 38.3C or Less than 36C, Recorded Heart Rate greater than 90 bpm, Recorded Respiratory Rate greater than 20, WBC count greater than 12,000 or less than 4000 - FOLLOW UP Follow Up: pt was found to have sepsis, likely from her UTI. pt is prescribed antibiotics to finish the treatment course, advise to keep pt hydration as well. - TIME SPENT Time Spent in Discharge (Minutes): 30
[2020-10-14] MEDS ORDERED: SACCHAROMYCES BOULARDII 250 MG CAPSULE PO SCH (17:00)
[2020-10-14] MEDS ORDERED: cephALEXin 250 MG CAPSULE PO SCH (21:00)
== END 2020-10-14 12:15 | disposition home or self-care (01) | DRG 872 ==
LOC: ED 11:48 → MS2 15:46
PROVIDERS: ADMIT Nurse Practitioner Gerontology; ATTEND Nurse Practitioner Gerontology
DX: A41.9 Sepsis, unspecified organism (principal); N39.0 Urinary tract infection, site not specified; G91.2 (Idiopathic) normal pressure hydrocephalus; F03.90 Unspecified dementia, unspecified severity, without behavioral disturbance, psychotic disturbance, mood disturbance, and anxiety; N17.9 Acute kidney failure, unspecified; N18.9 Chronic kidney disease, unspecified; Z96.89 Presence of other specified functional implants; Z91.81 History of falling; Z20.822 Contact with and (suspected) exposure to COVID-19; Z87.891 Personal history of nicotine dependence; Z66 Do not resuscitate; F10.21 Alcohol dependence, in remission; R05 Cough
CPT/HCPCS: 36415; 70450; 71045; 72040; 74177; 80053; 81001; 83605; 85025; 87040; 87086; 87631; 96365; 99281; 99285; A9270; Q9967; 0202U; 80048; 83735; 84100

== ENCOUNTER 2020-10-27 18:01 | Outpatient (CLI) | payer MEDICARE, MEDICAID ==
--- NOTE | 2020-10-28 10:07 | Ultrasound Report ---
PROCEDURE: Retroperitoneal INDICATIONS: LUQ PAIN, L FLANK PAIN, HEMATURIA TECHNIQUE: Real-time scanning was performed of the retroperitoneal organs, with image documentation. COMPARISON: CT abdomen and pelvis with contrast, 10/12/2020. FINDINGS: Kidneys: Kidneys are normal in size. Right kidney measures 9.2 cm long; left kidney measures 9.0 cm long. Right renal cortical thickness is 1.2 cm; left renal cortical thickness is 1.1 cm. No solid masses, hydronephrosis, or nephrolithiasis. There is a 1.9 x 1.7 x 1.6 cm simple cyst in the superio r pole of the right kidney. Bladder: Prevoid volume 123 mL. Postvoid volume 13 mL. Uterus areas are not visualized. Miscellaneous: A fluid collection seen in the right upper quadrant between the liver and the right ki dney, measuring 5.3 x 1.7 cm. IMPRESSION: 1. No renal stone or hydronephrosis. A cause for left flank pain and hematuria not identified. 2. A 1.9 x 1.7 x 1.6 cm simple cyst in the superior pole of the right kidney. 3. A 5.3 x 1.7 cm fluid collection in the right upper quadrant between the liver and right kidney. Th e clinical significance of the findings uncertain. If clinically indicated, this could be followed by ultrasound. Reviewed by: Mark Mera MD on 10/28/2020 10:06 AM PDT Approved by: Mark Mera MD on 10/28/2020 10:06 AM PDT Station ID: [id number]
== END 2020-10-27 18:02 | disposition home or self-care (01) ==
LOC: DI 18:01
PROVIDERS: ATTEND Nurse Practitioner Gerontology
DX: R10.12 Left upper quadrant pain (principal); R31.9 Hematuria, unspecified; R39.11 Hesitancy of micturition; N28.1 Cyst of kidney, acquired

== ENCOUNTER 2021-02-17 19:12 | Outpatient (CLI) | payer MEDICARE, MEDICAID ==
--- NOTE | 2021-02-18 09:42 | Ultrasound Report ---
PROCEDURE: Duplex Ext Veins Right INDICATIONS: LEG SWELLING AND PAIN TECHNIQUE: Real-time imaging, as well as color and pulse Doppler interrogation, were performed of the lower extr emity deep veins from the inguinal ligament to the popliteal fossa. COMPARISON: None. FINDINGS: The deep veins are normally compressible, and free of intraluminal thrombus. Color and pu lse Doppler demonstrate normal phasic intraluminal flow. There is normal augmentation response to di stal compression maneuver. IMPRESSION: No sonographic evidence of DVT. Possible Samano's cyst in the right posteromedial knee. Reviewed by: Luis Ma MD on 02/18/2021 9:41 AM PDT Approved by: Luis Ma MD on 02/18/2021 9:41 AM PDT Station ID: [id number]
== END 2021-02-17 19:13 | disposition home or self-care (01) ==
LOC: DI 19:12
PROVIDERS: ATTEND Nurse Practitioner Gerontology
DX: R22.41 Localized swelling, mass and lump, right lower limb (principal); M79.604 Pain in right leg

== ENCOUNTER 2022-04-12 14:05 | Outpatient (CLI) | payer MEDICARE, MEDICAID | END 2022-04-12 14:06 | disposition critical access hospital (66) | LOC: EMS 14:05 | DX: R10.9 Unspecified abdominal pain (principal); R11.2 Nausea with vomiting, unspecified | CPT/HCPCS: A0425; A0427 ==

== ENCOUNTER 2022-04-13 13:58 | Outpatient (CLI) | payer MEDICARE, MEDICAID | END 2022-04-13 13:59 | disposition left against medical advice (07) | LOC: EMS 13:58 | DX: S00.03XA Contusion of scalp, initial encounter (principal); W18.30XA Fall on same level, unspecified, initial encounter; Y92.098 Other place in other non-institutional residence as the place of occurrence of the external cause ==

== ENCOUNTER 2022-04-18 09:56 | Outpatient (CLI) | payer MEDICARE, MEDICAID | END 2022-04-18 09:57 | disposition critical access hospital (66) | LOC: EMS 09:56 | DX: M25.511 Pain in right shoulder (principal); W19.XXXA Unspecified fall, initial encounter; Y92.098 Other place in other non-institutional residence as the place of occurrence of the external cause | CPT/HCPCS: A0425; A0429 ==

== ENCOUNTER 2022-04-18 10:13 | Emergency (ER) | payer MEDICARE, MEDICAID ==
--- NOTE | 2022-04-18 10:55 | ED Physician Documentation ---
PD HPI Fall - Stated complaint Stated Complaint: GLF - Chief complaint Chief Complaint: Trauma Ext - History obtained from History obtained from: Patient, Family, EMS - History of Present Illness Mechanism of injury: Unknown (patient found by caregives at [facility] lying on the floor, face down, awake but unable to get up herself. Assisted up to chair. Pain at back of head from fall day prior. Right shoulder pain acutely and ongoing left shoulder pain.) Fall distance: Standing position Where injury occurred: Other ([facility] assisted living. Occurred this morning. Last seen about week ago for abd pain and Rx for diverticultis. Daughetr states that those symptoms have improved.) Injury(ies) location: Head (struck back of head with a fall yesterday. Has local swelling and tenderness back of head.), Right Upper Extremity (shoulder), Left Uppper Extremity (shoulder). No: Neck, Chest, Abdomen Associated symptoms: No: AMS, Neck pain, Weakness, Paresthesias Worsens with: Palpation Contributing factors: No: Anticoagulated, Intoxicated Recently seen: Emergency Dept (for abd pain, Dx diverticulitis.) Review of Systems Unable to obtain: Dementia Constitutional: denies: Fever Nose: denies: Rhinorrhea / runny nose, Congestion Throat: denies: Sore throat Respiratory: denies: Cough PD PAST MEDICAL HISTORY - Past Medical History Cardiovascular: None Respiratory: None Neuro: Dementia, Head injury Endocrine/Autoimmune: None GI: None : Chronic bladder infection Musculoskeletal: Rheumatoid arthritis Derm: None - Past Surgical History Ortho: Rotator cuff repair 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 - Present Medications Home Medications: Ambulatory Orders Medication Instructions Recorded Confirmed Famotidine [Pepcid] 20 mg PO DAILY #30 tablet 04/12/22 04/18/22 Acetaminophen [Acetaminophen Extra 500 mg PO Q6HR 04/18/22 04/18/22 Strength] Carboxymethylcellulose Sodium 1 drops OP QID 04/18/22 04/18/22 [Refresh Tears] Cholecalciferol (Vitamin D3) 50 mcg PO DAILY 04/18/22 04/18/22 [Vitamin D3] Glucosamine/MSM/Hyaluron Acid 1 each PO DAILY 04/18/22 04/18/22 [[id number] Tab] Meloxicam [Mobic] 7.5 mg PO DAILY 04/18/22 04/18/22 Mirtazapine 15 mg PO HS 04/18/22 04/18/22 Multivitamin 1 each PO DAILY 04/18/22 04/18/22 Olopatadine HCl 1 drops OP DAILY 04/18/22 04/18/22 Sertraline [Zoloft] 25 mg PO DAILY 04/18/22 04/18/22 - Allergies Allergies/Adverse Reactions: Allergies Allergy/AdvReac Type Severity Reaction Status Date / Time No Known Drug Allergies Allergy Verified 04/18/22 10:21 - Social History Does the pt smoke?: No Smoking Status: Former smoker PD ED PE NORMAL - Vitals Vital signs reviewed: Yes - General General: Alert and oriented X 3, No acute distress, Well developed/nourished - HEENT HEENT: PERRL, EOMI, Moist mucous membranes, Pharynx benign, Other (back of head with local area of swelling and tenderness without laceration nor bleeeding. ) - Neck Neck: Supple, no meningeal sign, No bony TTP - Cardiac Cardiac: RRR, No murmur - Respiratory Respiratory: Clear bilaterally - Abdomen Abdomen: Soft, Non tender - Back Back: No spinal TTP - Derm Derm: Normal color, Warm and dry - Extremities Extremities: No tenderness to palpate, Normal ROM s pain, No calf tenderness / cord, Other (shoulders tender anteriorly. Left shoulder tender anteriorly without obvious deformity. Right tender anterior and posterior. Guarded ROM right shoulder. ) - Neuro Neuro: No motor deficit, No sensory deficit, Normal speech Results - Vitals Vitals: Vital Signs - 24 hr 04/18/22 04/18/22 10:21 11:00 Temperature 36.4 C L Heart Rate 95 88 Respiratory 16 22 Rate Blood Pressure 146/72 H 145/75 H O2 Saturation 100 100 Oxygen O2 Source Room air - Labs Labs: Laboratory Tests 04/18/22 04/18/22 11:19 11:19 WBC 17.5 H RBC 3.43 L Hgb 11.2 L Hct 34.2 L MCV 99.7 H MCH 32.7 H MCHC 32.7 RDW 14.8 Plt Count 740 H MPV 9.1 Neut # (Auto) 15.6 H Lymph # (Auto) 1.1 L Saunders # (Auto) 0.6 Eos # (Auto) 0.0 Baso # (Auto) 0.1 Absolute Nucleated RBC 0.00 Nucleated RBC % 0.0 Sodium 140 Potassium 4.2 Chloride 108 Carbon Dioxide 23 Anion Gap 9.0 BUN 21 H Creatinine 1.3 H Estimated GFR (MDRD) 39 L Glucose 159 H Calcium 9.7 Magnesium 1.9 Total Bilirubin 0.7 AST 36 ALT 18 Alkaline Phosphatase 63 Total Creatine Kinase 1934 H* Total Protein 8.2 Albumin 3.6 Globulin 4.6 H Albumin/Globulin Ratio 0.8 L Lipase 41 - Rads (name of study) head CT Radiology: Prelim report reviewed (no ICH nor acute injuries. ), See rad report bilateral shoulder xrays Radiology: Prelim report reviewed (arthritic changes and high riding in joint space with likely some rotator cuff problems. No fractures. ), See rad report PD MEDICAL DECISION MAKING - ED course Complexity details: reviewed results (elevated CK but not high enough for needing hospitalization. Has shoulders pain but no fractures. had struck head yesterday with fall and occipital tender, so got CT, which did not show any acute injury. ), considered differential (generally weak and poor balance with history of falls, and more frequent lately. No focal weakness. Has walker but does not always use it. Does not call for assistance when getting up due to "forgets" per daughter. ), d/w patient, d/w family (daughter) Departure - Departure Disposition: 01 Home, Self Care Clinical Impression: Elevated CK, Frequent falls Fall from slip, trip, or stumble Qualifiers: Encounter type: initial encounter Qualified Code(s): W01.0XXA - Fall on same level from slipping, tripping and stumbling without subsequent striking against object, initial encounter Right shoulder strain Qualifiers: Encounter type: initial encounter Qualified Code(s): S46.911A - Strain of unspecified muscle, fascia and tendon at shoulder and upper arm level, right arm, initial encounter Condition: Stable Record reviewed to determine appropriate education?: Yes Follow-Up: NIKKO HEIN PA-C [Primary Care Provider] - Comments: Your head CT does not show any intracranial bleeding. Your shunt is in place with apparent good drainage. Shoulder x-rays show arthritic changes but no obvious fractures no dislocation. Presume some arthritis pain and may be rotator cuff pain related to the fall. Activity as tolerated with the shoulders. I would continue with the Voltaren gel for the shoulder 7 I would suggest using it on both shoulders at the same dosing interval. Continue with the Tylenol and could increase it to 4 times daily if needed. Be sure to use your walker with getting around and call for assistance with help getting up and getting to the bathroom etc. to help with your steadiness. Follow-up with your primary care regarding any further treatment or care modifications. Summary recommendations: 1. Continue Voltaren cream but apply both shoulders. 2. Increase acetaminophen 500 mg from 3 times daily to 4 times daily. 3. Ramo for assistance with ambulation, still using your walker. Discharge Date/Time: 04/18/22 13:55
[2022-04-18 11:08] VITALS: BP 145/75
[2022-04-18 11:26] LABS: BASOPHILS # (AUTO) 0.1 10^3/uL (0.0-0.1); BASOPHILS % (AUTO) 0.3 %; EOSINOPHILS % (AUTO) 0.1 %; HCT - HEMATOCRIT 34.2 % (37.0-47.0); HGB - HEMOGLOBIN 11.2 g/dL (12.0-16.0); LYMPHOCYTES # (AUTO) 1.1 10^3/uL (1.5-3.5); LYMPHOCYTES % (AUTO) 6.4 %; MEAN CORPUSCULAR HEMOGLOBIN 32.7 pg (27.0-31.0); MEAN CORPUSCULAR HGB CONC 32.7 g/dL (32.0-36.0); MEAN CORPUSCULAR VOLUME 99.7 fL (81.0-99.0); MEAN PLATELET VOLUME 9.1 fL (7.9-10.8); MONOCYTES # (AUTO) 0.6 10^3/uL (0.0-1.0); MONOCYTES % (AUTO) 3.6 %; NEUTROPHILS # (AUTO) 15.6 10^3/uL (1.5-6.6); NEUTROPHILS % (AUTO) 89.2 %; PLT - PLATELET COUNT 740 10^3/uL (130-450); RED BLOOD COUNT 3.43 10^6/uL (4.20-5.40); RED CELL DISTRIBUTION WIDTH 14.8 % (12.0-15.0); WHITE BLOOD COUNT 17.5 x10^3/uL (4.8-10.8)
[2022-04-18 11:45] LABS: ALBUMIN 3.6 g/dL (3.2-5.5); ALBUMIN/GLOBULIN RATIO 0.8 (1.0-2.2); BILIRUBIN,TOTAL 0.7 mg/dL (0.2-1.0); CALCIUM 9.7 mg/dL (8.5-10.3); CREATININE 1.3 mg/dL (0.4-1.0); MAGNESIUM 1.9 mg/dL (1.7-2.8); POTASSIUM 4.2 mmol/L (3.5-5.0); TOTAL PROTEIN 8.2 g/dL (6.7-8.2)
--- NOTE | 2022-04-18 11:55 | CT Report ---
PROCEDURE: HEAD WO INDICATIONS: fall, struck head few days ago, headache TECHNIQUE: Noncontrast 4.5 mm thick angled axial sections acquired from the foramen magnum to the vertex. For r adiation dose reduction, the following was used: automated exposure control, adjustment of mA and/or kV according to patient size. COMPARISON: CT head 10/12/2020 FINDINGS: Image quality: Images are mildly degraded by patient motion. Repeat sequence was acquired. Diagnostic information is obtained. CSF spaces: A right parietal approach ventricular shunt catheter is seen with catheter tip in the r ight lateral ventricle with tip near the septum pellucidum. The ventricles appear to be stable in siz e when compared to the CT from 10/12/2020. Basal cisterns are patent. No extra-axial fluid collections . Brain: No midline shift. No acute intracranial hemorrhage or mass effect. Hypodensities are again se en in the subcortical and periventricular white matter. Skull and face: Calvarium and visualized facial bones are intact, without suspicious lesions. Sinuses: Visualized sinuses and mastoids are clear. IMPRESSION: 1.No acute intracranial abnormality. 2.Right posterior ventricular shunt catheter is redemonstrated with stable ventricular size. Reviewed by: Joni Bassett MD on 04/18/2022 10:54 AM ZUNILDA Approved by: Joni Bassett MD on 04/18/2022 10:54 AM ZUNILDA Station ID: [id number]
--- NOTE | 2022-04-18 12:04 | XRAY Report ---
PROCEDURE: Shoulder 3 View BILAT INDICATIONS: fall with new right shoulder pain; prior left. TECHNIQUE: 3 views of each shoulder were acquired. COMPARISON: Right shoulder radiographs 06/11/2020. Left shoulder radiographs 05/14/2020 FINDINGS: Bones: No acute fractures or dislocations. No suspicious bony lesions. Visualized ribs appear inta ct. Degenerative changes are seen in the acromioclavicular and glenohumeral joints bilaterally. Diff use humeral heads are noted to be high riding with severe narrowing of the acromiohumeral intervals, suspicious for underlying rotator cuff tendon tearing. Findings are similar on the right when compare d to the prior radiographs from 06/11/2020, and appear mildly progressed on the left when compared to the radiographs from 05/14/2020. Soft tissues: No suspicious soft tissue calcifications. Ventricular shunt catheter is partially rodri ged projecting of the right neck and right chest. IMPRESSION: 1.No acute osseous abnormality. If there is clinical concern or persistent symptoms, additional imagi ng such as repeat radiographs or advanced imaging (e.g. CT, MRI) may be helpful for further evaluatio n. 2.Humeral heads are high riding bilaterally, worse on the right, which is suspicious for underlying c hronic rotator cuff tendon tearing. Reviewed by: Joni Bassett MD on 04/18/2022 11:03 AM ZUNILDA Approved by: Joni Bassett MD on 04/18/2022 11:03 AM ZUNILDA Station ID: [id number]
== END 2022-04-18 13:55 | disposition home or self-care (01) ==
LOC: EDBD → EDUNIT# → ED 10:13
DX: R74.8 Abnormal levels of other serum enzymes (principal); S46.911A Strain of unspecified muscle, fascia and tendon at shoulder and upper arm level, right arm, initial encounter; W18.30XA Fall on same level, unspecified, initial encounter; Y92.199 Unspecified place in other specified residential institution as the place of occurrence of the external cause; R29.6 Repeated falls; Z87.891 Personal history of nicotine dependence
CPT/HCPCS: 36415; 80053; 82550; 83690; 83735; 85025; 99284

== ENCOUNTER 2022-05-20 07:09 | Outpatient (CLI) | payer MEDICARE, MEDICAID | END 2022-05-20 07:10 | disposition EMS.NT | LOC: EMS 07:09 | DX: Z03.89 Encounter for observation for other suspected diseases and conditions ruled out (principal) ==